=== PATIENT | female | born 1965 | race Caucasian/White ===

== ENCOUNTER 2022-06-18 07:56 | Outpatient (REF) | payer OTHER, SELFPAY ==
[2022-06-18 11:23] LABS: Hematocrit 33.3 % (37.0-47.0); Mean Corpuscular Hemoglobin 30.2 pg (27.0-33.0); Mean Corpuscular Volume 91.5 fL (80.0-98.0); Mean Platelet Volume 11.1 fL (9.4-12.3); Platelet Count 289 X10*3/uL (160-400); Red Blood Count 3.64 X10*6/uL (4.20-5.50); Red Cell Distribution Width 12.4 % (11.0-16.0); White Blood Count 7.1 X10*3/uL (4.8-10.8)
[2022-06-18 12:20] LABS: Alanine Aminotransferase 12 U/L (0-31); Albumin Level 3.7 g/dL (3.5-5.0); Alkaline Phosphatase 62 U/L (39-117); Anion Gap 12 (12-20); Aspartate Amino Transferase 22 U/L (5-31); Bilirubin Total 0.4 mg/dL (0.0-1.0); Blood Urea Nitrogen 7 mg/dL (9-16); Carbon Dioxide 27 mmol/L (22-29); Chloride 103 mmol/L (96-108); Cholesterol 153 mg/dL; Estimated Glomerular Filt Rate > 60; Glucose Fasting 80 mg/dL (60-99); HDL Cholesterol 34 mg/dL; LDL Cholesterol Calculated 75 mg/dl; Potassium 4.3 mmol/L (3.3-5.1); Sodium 138 mmol/L (135-145); Total Protein 6.5 g/dL (6.5-8.0); Triglycerides 221 mg/dL
[2022-06-18 12:22] LABS: TSH reflex Free T4 3.85 uIU/mL (0.32-4.0)
== END 2022-06-18 07:57 | disposition home or self-care (01) ==
LOC: HO.WFDLDS 07:56
PROVIDERS: Visit Provider Hospitalist
DX: Z00.00 Encounter for general adult medical examination without abnormal findings (principal)
CPT/HCPCS: 36415; 80053; 80061; 84443; 85027

== ENCOUNTER 2022-06-23 08:23 | Outpatient (REF) | payer OTHER, SELFPAY ==
[2022-06-23 12:04] LABS: Iron 64 mcg/dL (30-160); Percent Iron Saturation 20 % (15-50); Total Iron Binding Capacity 318 mcg/dL (228-428); Unsaturated Iron Binding 254 ug/dL
[2022-06-23 12:25] LABS: Folate 10.8 ng/mL (> or = 4.0); Vitamin B12 320 pg/mL (200-900)
== END 2022-06-23 08:24 | disposition home or self-care (01) ==
LOC: HO.WFDLDS 08:23
PROVIDERS: Visit Provider Hospitalist
DX: D64.9 Anemia, unspecified (principal)
CPT/HCPCS: 36415; 82607; 82746; 83540

== ENCOUNTER 2022-08-09 10:19 | Outpatient (REF) | payer OTHER, SELFPAY ==
--- NOTE | ~2022-08-09 | MM_ITS ---
EXAMINATION: MM SCREENING DIGITAL BREAST TOMOSYNTHESIS, BILATERAL CLINICAL INFORMATION: Screening. Asymptomatic. The lifetime risk of breast cancer based on the Tyrer-Cuzick Model is 7%. COMPARISON: Outside mammography: 06/26/2017, 05/11/2015 ([facility]) TECHNIQUE: Digital breast tomosynthesis is performed in both the craniocaudal and mediolateral oblique views along with computer-aided detection (CAD). Synthesized 2D images are generated from the tomosynthesis. Additional right MLO view is provided. FINDINGS: There are scattered areas of fibroglandular density (ACR BI-RADS breast composition Category b). Breast tissue composition borders on predominantly fatty. Background stromal and fibroglandular densities are similar to outside studies and there is no developing density or architectural abnormality. There are no significant masses, abnormal calcifications, or other abnormalities. The axilla and skin contours are unremarkable. MM/MM tomosynthesis screening BI IMPRESSION: No mammographic evidence of malignancy. ASSESSMENT: BI-RADS 1: Negative RECOMMENDATION: Routine annual mammography screening. This patient's information was entered into a reminder system with a target due date for their next mammogram.
== END 2022-08-09 10:20 | disposition home or self-care (01) ==
LOC: HO.MAMMO 10:19
PROVIDERS: Visit Provider Hospitalist
DX: Z12.31 Encounter for screening mammogram for malignant neoplasm of breast (principal)
CPT/HCPCS: 77063; 77067

== ENCOUNTER 2023-04-24 10:54 | Day surgery (SDC) | payer OTHER, SELFPAY ==
--- NOTE | 2023-04-23 13:13 | HO.ANESPROP2 ---
Documented by User: Yanni Schroeder NP 04/23/23 13:14 HPI - Anesthesia Eval Consult details Narrative: 57yo F for Colonoscopy [facility] Active Problems Active Problems: All Active Problems (Updated 04/23/23 @ 11:22 by Anuja Moise RN) Anemia (Acute) Colon cancer screening (Acute) Screening for breast cancer (Acute) Normal physical exam (Acute) Past Medical History Medical History (Updated 04/23/23 @ 11:22 by Anuja Moise RN) Anemia Social History Social History Housing: House Patient Tobacco Use Status: Never used Tobacco e-Cigarette/Vaping Use: Never Used Are you DNR?: No Advance Directives: No Advance Directives Information Provided: Yes Nutrition Risks: No Nutritional Risk Current occupational status: employed Meds Allergies Allergy/AdvReac Type Severity Reaction Status Date / Time No Known Allergies Allergy Verified 06/17/22 11:14 Assessment and Plan Assessment Anesthesia Assessment: Chart Reviewed Documented by User: Digna Stewart MD 04/24/23 12:12 [facility] Past Medical History Medical History (Updated 04/23/23 @ 11:22 by Anuja Moise RN) Anemia Family History Family history of problems with anesthesia: No Surgical History History of Problems with Anesthesia: No Social History Social History Housing: House Patient Tobacco Use Status: Never used Tobacco e-Cigarette/Vaping Use: Never Used Are you DNR?: No Advance Directives: No Advance Directives Information Provided: Yes Nutrition Risks: No Nutritional Risk Current occupational status: employed Meds Allergies Allergy/AdvReac Type Severity Reaction Status Date / Time No Known Allergies Allergy Verified 06/17/22 11:14 Exam Airway Mallampati Class: II TM Dist: >3cm Neck ROM: Full Heart: rrr Lungs: cts Assessment and Plan Assessment Anesthesia Assessment: Anesthesia Plan Discussed Final Anesthetic Review Family History of Problems with Anesthesia: No History of Problems with Anesthesia: No NPO: Yes ASA Class: II Final Preanesthetic Review: No Changes in Pt Med Stat, Meds/Allgs Chart Reviewed and Consent Obtained/Reviewed Patient Risk: Intermediate Procedure Risk: Intermediate Anesthetic Plan Anesthetic Plan: MAC: Disposition: Standard PACU
[2023-04-24 11:51] VITALS: BMI 23.6
[2023-04-24 11:56] VITALS: BP 118/78; PULSE 52; RESP 20; TEMP 36.1; O2SAT 98
--- NOTE | 2023-04-24 11:59 | MHC.SHP ---
Pre-Procedural Eval Section A Date of Service: 04/24/23 The patient is an INPATIENT: No The History & Physical has been completed within 30 days and I have reviewed it.: No Section B Chief Complaint: Colon cancer screening, iron def anemia Relevant Family History (Specify if Yes): No Relevant Social History: None Present Medications: see Short Stay Collaborative assessment Medical History: Significant History (anemia) History of Previous Operations: No relevant previous surgery Allergies: Allergies Allergy/AdvReac Type Severity Reaction Status Date / Time No Known Allergies Allergy Verified 06/17/22 11:14 Review of Systems Sugical H&P ROS: Negative: Constitution, Cardiovascular, Respiratory and Gastrointestinal Exam Surgical H&P Exam: Normal: Heart, Normal: Lungs, Normal: Extremities and Normal: Abdomen Plan Diagnosis/Plan: Change (add upper endoscopy for evaluation of Iron def anemia) I have reviewed the history and physical and performed a pertinent physical examination on my patient. No changes have occurred unless specified. Time Spent With Patient Time: Total time managing care of this patient today ____ minutes.
--- NOTE | 2023-04-24 13:14 | P.OP_ITS ---
Operative Note Operative Note Date of Service: 04/24/23 Narrative: FLEXIBLE TRANSORAL UPPER GASTROINTESTINAL ENDOSCOPY WITH BIOPSIES AND COLONOSCOPY TILL CECUM WITH SNARE POLYPECTOMY Pre-op diagnosis: colon cancer screening, iron def anemia Post-op diagnosis: Gastritis, duodenal ulcer, colon polyp, diverticulosis, hemorrhoids Endoscopist:? Saji Powell MD Anesthesia:?MAC UPPER ENDOSCOPY Consent: Indications for the procedure and potential complications of bleeding, perforation, reaction to medications and missed diagnosis were discussed with the patient and informed consent was obtained. Instrument: Olympus GIF H 190 mid size upper endoscope Monitoring: Vital signs and clinical assessment, continuous EKG monitoring, Pulse oximetry, Carbon Dioxide monitoring and blood pressure monitoring were done throughout the procedure. Procedure: The patient was placed in the left lateral decubitis position and pre-procedure medications were administered and a bite block was placed. The endoscope was inserted into the mouth and advanced under direct vision to the third part of duodenum. A careful inspection was made as the upper endoscope was withdrawn including a retroflexed examination of the proximal stomach; Findings and interventions are described below. Findings: Larynx: Normal Esophagus: GE junction at 38 cms. No esophagitis or Graf's. Stomach: Moderate gastric erythema with nodular appearing mucosa in the gastric body. Biopsies were obtained from the antrum and body of the stomach. Grade 1 flap valve on retroflexed examination of the cardia. Duodenum: Normal bulb and descending duodenum Intervention: Biopsies as noted above COLONOSCOPY PROCEDURE NOTE Consent: Indications for the procedure and potential complications of bleeding, perforation, reaction to medications and missed diagnosis were discussed with the patient and informed consent was obtained. Instrument: Olympus PCF H 190 L variable stiffness pediatric colonoscope Monitoring: Vital signs and clinical assessment, intermittent blood pressure monitoring, continuous EKG monitoring, Pulse oximetry and Carbon Dioxide monitoring were done throughout the procedure. Colon withdrawl time was 22 minutes. Procedure: The patient was placed in the left lateral decubitis position and pre-procedure medications were administered. After a digital rectal examination of the ano-rectum, the video colonoscope was inserted into the rectum and advanced through the colon to the cecum. The colonoscope was slowly withdrawn in a retrograde panoramic fashion and the colon mucosa was carefully examined including a retroflexed view of the rectum. Findings and interventions are described below. Procedure Difficulty: Colon was long and tortuous and there was some loop formation Findings: Terminal Ileum: Distal 5 cm was examined and appeared normal Cecum: Normal Ascending Colon: Normal Transverse Colon: Normal Descending Colon: Normal Sigmoid Colon: A 10-12 mm sessile polyp - removed with a hot snare. Moderate diverticulosis Rectum: Normal Ano-rectum: Small internal hemorrhoids Colon preparation: Excellent Impression and Post Procedure Diagnosis: Endoscopy Findings: STOMACH: Moderate gastric erythema with nodular appearing mucosa in the gastric body. Biopsies were obtained from the antrum and body of the stomach. Colonoscopy Findings: One medium sized polyp removed Moderate diverticulosis seen in the sigmoid colon Small hemorrhoids on retroflexed exam. Plan: I will send a letter with pathology results Patient to schedule a follow up appointment in the GI Clinic with Saji Powell M.D. Repeat Colonoscopy interval based on path results - in 3 years if polyp is adenomatous and 10 years if polyps are hyperplastic. Above findings were reviewed with the patient and Peptic ulcer disease, colon polyps and diverticulosis handouts were given in the discharge area Pt was advised to start Omeprazole 20 mg daily. BIOPSIES SHOWED: A. Duodenum, biopsy: Small intestinal mucosa within normal limits; negative for celiac disease. B. Stomach, antrum, biopsy: - Antral-type mucosa with severe chronic active inflammation. - Positive for H pylori. C. Stomach, body, biopsy: - Oxyntic mucosa with moderate chronic, focally active, inflammation. - Positive for H pylori. D. Colon, sigmoid, polypectomy: Fragments of tubular adenoma; negative for high- grade dysplasia or carcinoma
[2023-04-24 13:51] VITALS: BP 101/50; PULSE 59; RESP 16; TEMP 36.1; O2SAT 97
[2023-04-24 14:06] VITALS: BP 113/71; PULSE 57; RESP 14; O2SAT 98
[2023-04-24 14:21] VITALS: BP 114/62; PULSE 60; RESP 16; TEMP 36.2; O2SAT 100
== END 2023-04-24 14:41 | disposition home or self-care (01) ==
PROVIDERS: Visit Provider Internal Medicine Gastroenterology
PROC: 0DJD8ZZ Inspection of Lower Intestinal Tract, Via Natural or Artificial Opening Endoscopic (ICD-10-PCS; CPT 45378; principal; 2023-04-24 12:50)
DX: Z12.11 Encounter for screening for malignant neoplasm of colon (principal); D12.5 Benign neoplasm of sigmoid colon; K57.30 Diverticulosis of large intestine without perforation or abscess without bleeding; K64.8 Other hemorrhoids; D50.9 Iron deficiency anemia, unspecified; K26.9 Duodenal ulcer, unspecified as acute or chronic, without hemorrhage or perforation; K29.50 Unspecified chronic gastritis without bleeding; B96.81 Helicobacter pylori [H. pylori] as the cause of diseases classified elsewhere
CPT/HCPCS: 45385; 43239; 88305; 88342; J2704

== ENCOUNTER → 2023-04-24 10:54 | Outpatient (BNV) | payer OTHER, SELFPAY | PROVIDERS: Visit Provider Internal Medicine Gastroenterology | DX: Z12.11 Encounter for screening for malignant neoplasm of colon (principal); K63.5 Polyp of colon; K57.30 Diverticulosis of large intestine without perforation or abscess without bleeding; K64.8 Other hemorrhoids; D50.9 Iron deficiency anemia, unspecified; K29.70 Gastritis, unspecified, without bleeding; K26.9 Duodenal ulcer, unspecified as acute or chronic, without hemorrhage or perforation | CPT/HCPCS: 43239; 45385 ==

== ENCOUNTER 2023-06-18 08:35 | Outpatient (REF) | payer OTHER, SELFPAY ==
[2023-06-21 13:20] LABS: H Pylori Breath Test Negative (Negative)
== END 2023-06-18 08:36 | disposition home or self-care (01) ==
LOC: HO.LNP 08:35
PROVIDERS: Visit Provider Internal Medicine Gastroenterology
DX: Z11.2 Encounter for screening for other bacterial diseases (principal)
CPT/HCPCS: 83013; 99211

== ENCOUNTER 2023-06-26 08:08 | Outpatient (AMB) | payer OTHER, SELFPAY ==
--- NOTE | 2023-06-26 08:11 | A.OFFPC_ITS ---
Vital Signs 06/26/23 08:13 Height 5 ft 2 in Weight 135 lb 2 oz BMI 24.7 BP 110/52 L Blood Pressure Location Rt brachial Position Sitting Pulse 66 Pulse Source Pulse Oximeter Oxygen Delivery Method Room Air Intake Visit Reasons: PE Allergies No Known Allergies Allergy (Verified 06/26/23 08:16) Medication List - Last Reconciled 06/26/23 by KSENIA Cesar Tobacco use date assessed: 06/17/22 HPI HPI Comments History of Present Illness Details 57-year-old female anemia H. 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 Referral placed today Vaccines declined flu, Tdap 2021 Eyes - no problems. Would like exam, referral placed today Specialists [facility] SHEAR OPERATOR HELPER Counselor Here today for CPE & est care Did have GI upset abd pain occured during time of of parents. Treated for H Pylori. MIKE 06/18/23 negative. No longer on meds Was taking Iron for anemia, no longer taking. Donates blood Reports perimenopause sx - heavy bleeding age 51. Can have 6-8 months w/o bleeding and then can have normal period. LMP 03/2023. Not active w/ SHEAR OPERATOR HELPER at this time. Overdue for PAP and SHEAR OPERATOR HELPER care. Fell out of care d/t insurance changes. Reports hx of endometrial bx in the past that was negative. Hysteroscopy was ordered however she didnt have insurance at the time. In counseling for Grief Surgery hx: None Family hx: Mom 84 chikungunya pulm Dad 88 bladder cancer Siblings 4 brothers, 3 sisters. sister 10 months old PNA, brothers [place] age 32 and 35 Living siblings: sister chrons & hyperthyroid, brother w/ gout and etoh, brother with heart disorder ? arrhythmia PFSH Medical History Anemia Social History Housing: House Patient Tobacco Use Status: Never used Tobacco e-Cigarette/Vaping Use: Never Used Current occupational status: employed Questionnaire PHQ-9 Over the last 2 weeks, how often have you been bothered by any of the following problems? 1. Little interest or pleasure in doing things: not at all 2. Feeling down, depressed, or hopeless: not at all 3. Trouble falling or staying asleep, or sleeping too much: not at all 4. Feeling tired or having little energy: not at all 5. Poor appetite or overeating: not at all 6. Feeling bad about yourself - or that you are a failure or have let yourself or your family down: not at all 7. Trouble concentrating on things, such as reading the newspaper or watching television: not at all 8. Moving or speaking so slowly that other people could have noticed. Or the opposite - being so fidgety or restless that you have been moving around a lot more than usual: not at all 9. Thoughts that you would be better off or of hurting yourself in some way: not at all Total score: 0 Depression Screening Interpretation: Negative Depression Screening Done: Yes 43079 - PHQ-9 Billing: Yes Source: Developed by Drs. Farhan Moya, Lanny Whitney, Isael Edmond and colleagues, with an educational octavio from [employer]. Thrive Questionnaire Date Thrive assessed: 06/17/22 I am a: Parent/Caregiver What is your living situation today?: I have a steady place to live Within the past 12 months, did the food you bought not last and you didn't have the money to get more?: Never true Within the past 12 months, did you worry whether your food would run out before you got money to buy more?: Never true Do you have trouble paying for medicines?: No Do you have trouble getting transportation to medical appointments?: No Do you have trouble paying your heating and electricity bill?: No Do you have trouble taking care of your child, family member or friend?: No Do you have trouble with day-to-day activities such as bathing, preparing meals, shopping, managing finances, etc.?: No Are you currently unemployed and looking for a job?: No Are you interested in more education?: No Please select the resources that you would like help with: None Currently or been in a relationship where the following occur: no concerns reported THRIVE Score: 0 AUDIT C Alcohol Use Questionnaire (AUDIT-C) 1. How often do you have a drink containing alcohol?: Never 3. How often do you have six or more drinks on one occasion?: Never Total Score: 0 Score Reviewed/Action Taken: Yes MELINDA-7 AMB Questionnaire MELINDA-7 Date MELINDA - 7 assessed: 06/17/22 Feeling nervous, anxious, or on edge: 0 = Not at all Not being able to stop or control worryin = Not at all Worrying too much about different things: 0 = Not at all Trouble relaxin = Not at all Being so restless that it is hard to sit still: 0 = Not at all Becoming easily annoyed or irritable: 0 = Not at all Feeling afraid as if something awful might happen: 0 = Not at all Total MELINDA-7 score (0-4 normal; 5-9 mild; 10-14 moderate; 15-21 severe): 0 Source: Developed by Drs. Farhan Moya, Lanny Whitney, Isael Edmond and colleagues, with an educational octavio from [employer]. MELINDA-7 Assessment Billing MELINDA-7 Assessment Tool: MELINDA-7 Assessment 18117 Review of Systems Const Details: Constitutional: [Denies] fever. Skin: [Denies] rash. Eye: [Denies] eye pain. ENMT: [Denies] sore throat and nasal congestion. Respiratory: [Denies] shortness of breath and cough. Gastrointestinal: [Denies] nausea, vomiting or abdominal pain. Cardiovascular: [Denies] chest pain and syncope. Genitourinary: [Denies] dysuria. Musculoskeletal: [Denies] back pain and extremity pain. Neurologic: [Denies] headaches, confusion, and weakness. Psychiatric: [Denies] suicidal thoughts and substance abuse. Allergy/ Immunologic: [Denies] impaired immunity. Physical exam (Primary Care) Vital Signs: Last Vital Signs Pulse 66 06/26/23 08:13 BP 110/52 L 06/26/23 08:13 Oxygen Delivery Method Room Air 06/26/23 08:13 BMI result Body Mass Index 24.7 Tobacco/Smoking Status: Tobacco use Status Tobacco use date assessed 06/17/22 06/26/23 08:27 Patient Tobacco Use Status Never used Tobacco 06/26/23 08:27 e-Cigarette/Vaping Use Never Used 06/26/23 08:27 PHQ-9: PHQ-9 Score PHQ-9: Total score 0 06/26/23 08:27 Depression Screening Interpretation: Negative Thrive Assessment: Date of Thrive Assessment Date Thrive assessed 06/17/22 06/26/23 08:27 Currently or been in a relationship where the following occur: no concerns reported Const Other: General: Well developed, well nourished, in no acute distress. Appears stated age. Head: Normocephalic, atraumatic. Eyes: Pupils are equal, round and reactive to light and accommodation. Conjunctivae are clear. Vision grossly normal. Ears: TMs clear AU, EACS WNL Nose: Patent, without discharge. Mouth: There are no ulcers or lesions noted. No inflammation, no post nasal drip, no plaques nor exudates. Neck: Supple, no adenopathy or thyromegaly. Lungs: Clear to auscultation bilaterally. No rales, rhonchi or wheeze noted. Good air flow in all kemp. Heart: Regular rate and rhythm. No murmurs, click, rubs or gallops are noted. Abdomen: Bowel sounds present in all quadrants. The abdomen is soft, nontender, with no masses or organomegaly noted. No hernias are noted. Musculoskeletal: Joints are nontender, without swelling, redness, or effusions. Range of motion is observed to be normal. Pulses: Peripheral pulses are equal and palpable bilaterally. Extremities: No clubbing, cyanosis nor edema is noted. Neurologic: Gait and station normal. Cranial Nerves 2-12 intact. Motor strength grossly symmetrical and intact. No sensory loss. Balance normal. Skin: No rashes, ulcers, or lesions noted. Turgor is good. Skin color is good. Hair and nails are without abnormalities. Psych: Normal eye contact, affect and mood appropriate, and normal interactions. Patient is alert and appropriate to context. Assessment and Plan Assessment & Plan (1) Normal physical exam: Code(s): Z00.00 - Encounter for general adult medical examination without abnormal findings (2) Cervical cancer screening: Comment: Refer to managing manager Code(s): Z12.4 - Encounter for screening for malignant neoplasm of cervix (3) Hair loss: Code(s): L65.9 - Nonscarring hair loss, unspecified Plan: refer to dermatology (4) Screening for eye condition: Comment: refer to ophthalmology Code(s): Z13.5 - Encounter for screening for eye and ear disorders (5) Anemia: Comment: was on iron in the past. No longer taking. Reports she donates blood routinely. Also reports heavy menses. Referred to managing manager for the menses. We will check labs. Code(s): D64.9 - Anemia, unspecified Qualifiers: Anemia type: iron deficiency Iron deficiency anemia type: chronic blood loss Qualified Code(s): D50.0 - Iron deficiency anemia secondary to blood loss (chronic) (6) Subclinical hypothyroidism: Comment: Reports this was noted in 2018. Repeat thyroid labs Code(s): E03.8 - Other specified hypothyroidism (7) Laboratory exam ordered as part of routine general medical examination: Code(s): Z00.00 - Encounter for general adult medical examination without abnormal findings Orders: Orders TSH reflex Free T4 Today D64.9 - Anemia, unspecified, E03.8 - Other specified hypothyroidism, Z00.00 - Encounter for general adult medical examination without abnormal findings Comprehensive [place]. Panel Fast Today D64.9 - Anemia, unspecified, E03.8 - Other specified hypothyroidism, Z00.00 - Encounter for general adult medical examination without abnormal findings Vitamin D 1,25 dihydroxy Today D64.9 - Anemia, unspecified, E03.8 - Other specified hypothyroidism, Z00.00 - Encounter for general adult medical examination without abnormal findings Lipid Panel Today D64.9 - Anemia, unspecified, E03.8 - Other specified hypothyroidism, Z00.00 - Encounter for general adult medical examination without abnormal findings Complete Blood Count no Diff Today D64.9 - Anemia, unspecified, E03.8 - Other specified hypothyroidism, Z00.00 - Encounter for general adult medical examination without abnormal findings IRON PROFILE Today D64.9 - Anemia, unspecified, E03.8 - Other specified hypothyroidism, Z00.00 - Encounter for general adult medical examination without abnormal findings Microalbumin, Random (w Creat) Today Z00.00 - Encounter for general adult medical examination without abnormal findings Referrals [facility] TIER Referral Z00.00 - Encounter for general adult medical examination without abnormal findings, Z12.4 - Encounter for screening for malignant neoplasm of cervix Dermatology Referral L65.9 - Nonscarring hair loss, unspecified Ophthalmology Referral Z13.5 - Encounter for screening for eye and ear disorders Cardiology Referral Z82.49 - Family history of ischemic heart disease and other diseases of the circulatory system Patient Instructions: Health screenings for women ages 18 to 39 You should visit your health care provider from time to time, even if you are healthy. The purpose of these visits is to: Screen for medical issues Assess your risk for future medical problems Encourage a healthy lifestyle Update vaccinations and other preventive care services Help you get to know your provider in case of an illness Information Even if you feel fine, you should still see your provider for regular checkups. These visits can help you avoid problems in the future. For example, the only way to find out if you have high blood pressure is to have it checked regularly. High blood sugar and high cholesterol levels also may not have any symptoms in the early stages. A simple blood test can check for these conditions. There are specific times when you should see your provider or receive specific health screenings. The [place] Preventive Services Task Force publishes a list of recommended screenings. Below are screening guidelines for women ages 18 to 39. BLOOD PRESSURE SCREENING Your blood pressure should be checked at least once every 3 to 5 years if: Your blood pressure is in the normal range (top number less than 120 mm Hg and bottom number less than 80 mm Hg) You don't have risk factors for high blood pressure Ask your provider if you need your blood pressure checked more often if: The top number is 120 to 129 mm Hg or the bottom number is 70 to 79 mm Hg You have diabetes, heart disease, kidney problems, are overweight, or have certain other health conditions You have a first-degree relative with high blood pressure You are Black You had high blood pressure during a If the top number is 130 mm Hg or greater or the bottom number is 80 mm Hg or greater, this is considered stage 1 hypertension. Schedule an appointment with your provider to learn how you can reduce your blood pressure. Watch for blood pressure screenings in your area. Ask your provider if you can stop in to have your blood pressure checked. BREAST CANCER SCREENING Experts do not agree about the benefits of breast self-exams in finding breast cancer or saving lives. Talk to your provider about what is best for you. A screening mammogram is not recommended for most women under age 40. Your provider may discuss and recommend mammograms, MRI scans, or ultrasounds if you have an increased risk for breast cancer, such as: A mother or sister who had breast cancer at a young age (most often starting screening earlier than the age the close relative was diagnosed) You carry a high-risk genetic marker CERVICAL CANCER SCREENING Cervical cancer screening should start at age 21 years unless your provider advises otherwise. After the first test: Women ages 21 through 29 should have a Pap test every 3 years. Exoprts do not agree on whether HPV testing is recommended for this age group. Women ages 30 through 65 should be screened with either a Pap test every 3 years or the HPV test every 5 years or both tests every 5 years (called cotesting ). Women who have been treated for precancer (cervical dysplasia) should continue to have Pap tests for 20 years after treatment or until age 65, whichever is longer. If you have had your uterus and cervix removed (total hysterectomy), and you have not been diagnosed with cervical cancer or precancer (high grade cervical neoplasia), you do not need cervical cancer screening. CHOLESTEROL SCREENING Cholesterol screening should begin at: Age 45 for women with no known risk factors for coronary heart disease Age 20 for women with known risk factors for coronary heart disease Repeat cholesterol screening should take place: Every 5 years for women with normal cholesterol levels More often if changes occur in lifestyle (including weight gain and diet) More often if you have diabetes, heart disease, kidney problems, or certain other conditions DIABETES SCREENING You should be screened for diabetes starting at age 35 and then repeated every 3 years if you have no risk factors for diabetes. Screening may need to start earlier and be repeated more often if you have other risk factors for diabetes, such as: You have a first degree relative with diabetes. You are overweight or have obesity. You have high blood pressure, prediabetes, or a history of heart disease. Screening for diabetes should be done if you are planning to become and you are overweight and have other risk factors such as high blood pressure. DENTAL EXAM Go to the dentist once or twice every year for an exam and cleaning. Your dentist will evaluate if you need more frequent visits. EYE EXAM Have an eye exam every 5 to 10 years before age 40. If you have vision problems, have an eye exam every 2 years or more often if recommended by your provider. You should have an eye exam that includes an examination of your retina (back of your eye) at least every year if you have diabetes. IMMUNIZATIONS Commonly needed vaccines include: Flu shot: get one every year. COVID-19 vaccine: ask your provider what is best for you. Tetanus-diphtheria and acellular pertussis (Tdap) vaccine: have one at or after age 19 as one of your tetanus-diphtheria vaccines if you did not receive it as an adolescent. Tetanus-diphtheria: have a booster (or Tdap) every 10 years. Varicella vaccine: receive 2 doses if you never had chickenpox or the varicella vaccine. Hepatitis B vaccine: receive 2, 3, or 4 doses, depending on your exact circumstances. Measles, mumps, and rubella (MMR) vaccine: receive 1 to 2 doses if you are not already immune to MMR. Your provider can tell you if you are immune. Ask your provider about the human papillomavirus (HPV) vaccine if: You have not received the HPV vaccine in the past You have not completed the full vaccine series (you should catch up on this shot) Ask your provider if you should receive other immunizations if you have certain health problems that increase your risk for some diseases such as pneumonia. INFECTIOUS DISEASE SCREENING Women who are sexually active should be screened for chlamydia and gonorrhea up until age 25. Women 25 years and older should be screened for chlamydia and gonorrhea if at high risk. Screening for hepatitis C: All adults ages 18 to 79 should get a one-time test for hepatitis C. people should be screened at every . Screening for human immunodeficiency virus (HIV): All people ages 15 to 65 should get a one-time test for HIV. Depending on your lifestyle and medical history, you may also need to be screened for infections such as syphilis and HIV, as well as other infections. PHYSICAL EXAM All adults should visit their provider from time to time, even if they are healthy. The purpose of these visits is to: Screen for disease Assess your risk of future medical problems Encourage a healthy lifestyle Update your vaccinations and other preventive care services Maintain a relationship with a provider in case of an illness Your height, weight, and BMI should be checked at every exam. During your exam, your provider may ask you about: Depression and anxiety Diet and exercise Alcohol and tobacco use Safety issues, such as using seat belts, smoke detectors, and intimate partner violence Your medicines and risk for interactions SKIN SELF-EXAM Your provider may check your skin for signs of skin cancer, especially if you're at high risk, such as if you: Have had skin cancer before Have close relatives with skin cancer Have a weakened immune system OTHER SCREENING Talk with your provider about colon cancer screening if you have a strong family history of colon cancer or polyps, or if you have had inflammatory bowel disease or polyps yourself. Routine bone density screening of women under 40 is not recommended. Review Flu Vaccine not done: patient reason Coding Level of Care Code Est Pt Prev Care 40-64y(00361) Diagnoses Normal physical exam Z00.00 Cervical cancer screening Z12.4 Hair loss L65.9 Screening for eye condition Z13.5 Iron deficiency anemia due to chronic blood loss D50.0 Anemia type: iron deficiency Iron deficiency anemia type: chronic blood loss Subclinical hypothyroidism E03.8 Laboratory exam ordered as part of routine general medical examination Z00.00 Additional Codes MELINDA-7 Assessment Billing - MELINDA-7 Assessment Tool: MELINDA-7 Assessment [id number] ([id number])
[2023-06-26 08:13] VITALS: BP 110/52; PULSE 66; BMI 24.7
== END 2023-06-26 09:10 | disposition home or self-care (01) ==
PROVIDERS: Visit Provider Nurse Practitioner Family
DX: Z00.00 Encounter for general adult medical examination without abnormal findings (principal); Z12.4 Encounter for screening for malignant neoplasm of cervix; L65.9 Nonscarring hair loss, unspecified; Z13.5 Encounter for screening for eye and ear disorders; D50.0 Iron deficiency anemia secondary to blood loss (chronic); E03.8 Other specified hypothyroidism
CPT/HCPCS: 99396

== ENCOUNTER 2023-06-26 08:54 | Outpatient (REF) | payer OTHER, SELFPAY ==
[2023-06-26 11:25] LABS: Hematocrit 39.3 % (37.0-47.0); Hemoglobin 13.2 g/dl (12.0-16.0); Mean Corpuscular HGB Conc 33.6 g/dl (31.0-35.0); Mean Corpuscular Hemoglobin 30.8 pg (27.0-33.0); Mean Corpuscular Volume 91.8 fL (80.0-98.0); Mean Platelet Volume 10.9 fL (9.4-12.3); Platelet Count 237 X10*3/uL (160-400); Red Blood Count 4.28 X10*6/uL (4.20-5.50); White Blood Count 7.9 X10*3/uL (4.8-10.8)
[2023-06-26 12:07] LABS: Creatinine Urine 11.27 mg/dL; Microalbumin Urine < 5.0 mg/L
[2023-06-26 13:08] LABS: Alanine Aminotransferase 18 U/L (0-31); Albumin Level 4.3 g/dL (3.5-5.0); Alkaline Phosphatase 80 U/L (39-117); Anion Gap 11 (12-20); Aspartate Amino Transferase 24 U/L (5-31); Bilirubin Total 0.6 mg/dL (0.0-1.0); Blood Urea Nitrogen 7 mg/dL (9-16); Calcium 9.1 mg/dL (8.4-10.2); Carbon Dioxide 30 mmol/L (22-29); Chloride 101 mmol/L (96-108); Cholesterol 193 mg/dL (<200); Estimated Glomerular Filt Rate > 60; Glucose Fasting 79 mg/dL (60-99); HDL Cholesterol 45 mg/dL (>40); Iron 102 mcg/dL (30-160); LDL Cholesterol Calculated 113 mg/dL (<100); Percent Iron Saturation 35 % (15-50); Potassium 3.7 mmol/L (3.3-5.1); Sodium 138 mmol/L (135-145); Total Iron Binding Capacity 290 mcg/dL (228-428); Total Protein 7.3 g/dL (6.5-8.0); Triglycerides 175 mg/dL (<150); Unsaturated Iron Binding 188 ug/dL
[2023-06-26 14:07] LABS: Free T4 (Free Thyroxine) 1.08 ng/dL (0.71-1.85)
[2023-07-01 15:57] LABS: VITAMIN D (1,25 OH) D3 39 pg/mL; Vit D (1,25-Dihydroxy) Total 39 pg/mL (18-72); Vitamin D (1,25 OH) D2 <8 pg/mL
== END 2023-06-26 08:55 | disposition home or self-care (01) ==
LOC: HO.WFDLDS 08:54
PROVIDERS: Visit Provider Nurse Practitioner Family
DX: Z00.00 Encounter for general adult medical examination without abnormal findings (principal); D64.9 Anemia, unspecified; E03.8 Other specified hypothyroidism
CPT/HCPCS: 36415; 80053; 80061; 82043; 82570; 82652; 83540; 84439; 84443; 85027

== ENCOUNTER 2023-08-14 08:31 | Outpatient (REF) | payer OTHER, SELFPAY ==
[2023-08-19 23:18] LABS: HPV mRNA E6/E7 rflx Not Detected (Not Detected)
== END 2023-08-14 08:32 | disposition home or self-care (01) ==
LOC: HO.LNP 08:31
PROVIDERS: Visit Provider Advanced Practice Midwife
DX: Z01.419 Encounter for gynecological examination (general) (routine) without abnormal findings (principal); Z11.51 Encounter for screening for human papillomavirus (HPV)
CPT/HCPCS: 87624; 88142

== ENCOUNTER 2023-08-14 08:31 | Outpatient (AMB) | payer OTHER, SELFPAY ==
--- NOTE | 2023-08-14 08:32 | A.OFFVIS_ITS ---
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 She is doing well with no concerns. Menses spacing over several years, last cycle March, and now this week. History of heavy menstrual bleeding and hyperplasia, had EMB in 2018, she reports a negative biopsy. 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 Currently not sexually active. Denies any vaginal dryness or irritation. STI testing offered; she declines. Last pap smear; 2017, negative history. Last mammogram; 2022. Colonoscopy is UTD. Needs one in 3 years. Denies any family history of breast, ovarian or colon cancer. 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 Sexually active: No Sexual orientation: Straight/Heterosexual Gender identity: Female Female Reproductive History Menstrual Total pregnancies: 3 Full term: 3 Number of Living Children: 3 Date of last pap smear: 06/30/17 Date of Mammogram: 08/09/22 Review of Systems Const All systems reviewed & are unremarkable except as noted in HPI and below Reports as per HPI Eyes Reports no additional complaints ENT Reports no additional complaints Card Reports no additional complaints Resp Reports no additional complaints GI Reports as per HPI and Reports no additional complaints Reports as per HPI Musc Reports no additional complaints Skin/Breast Reports as per HPI Neuro Reports no additional complaints Psych Reports no additional complaints Endo Reports no additional complaints Trey/Lymph Reports no additional complaints Aller/Immun Reports no additional complaints Physical Exam Vital Signs: Last Vital Signs BP 106/62 08/14/23 08:36 BMI result Body Mass Index 23.8 Const General: cooperative, healthy appearing, no acute distress, well developed and alert Orientation/consciousness: patient oriented x3 HEENT Head: Yes normal to inspection Eyes General: appearance normal, both eyes and all related structures Neck Neck: Yes normal visual inspection Thyroid: Thyroid normal Chest Chest palpation & inspection: normal inspection of the chest and other (no puckering, dimpling, peau de orange, retraction, discharge, masses) Breast/axilla inspection: normal inspection of the breasts Breast/axilla palpation: normal palpation of the breasts Resp Effort & Inspection: normal respiratory effort GI Inspection: Yes normal to inspection Palpation (GI): Soft to palpation Rectal Exam - Female: deferred General: Yes bladder normal to palpation External Female Exam: normal external appearance and normal appearance of the urethra Speculum Exam - Vagina: normal appearance of the vagina, normal palpation, normal vaginal discharge and vaginal bleeding Speculum Exam - Cervix: normal appearance of the cervix, normal palpation and Other cervical findings present (deviated to the right) Bimanual exam- vagina & uterus: normal bimanual exam, normal palpation, uterine size normal, bladder normal to palpation, normal palpation and non-tender Bimanual Exam- Adnexa, other: no masses OB/external & speculum: vaginal bleeding Skin General skin exam: no rashes or lesions noted Rashes: no rashes Neuro General: patient oriented x3 Cognition (Neuro): normal cognition Extrem General: Yes normal to inspection Psych Attitude: cooperative Thought process: Normal thought process present Assessment & Plan Assessment & Plan (1) Encounter for well woman exam with routine gynecological exam: Code(s): Z01.419 - Encounter for gynecological examination (general) (routine) without abnormal findings Plan Discussed: Current recommendations for pap smears per ASCCP guidelines. Breast awareness, periodic self breast exams and yearly mammogram. Maintain a healthy lifestyle, well balanced diet including Calcium 1,200 mg and Vitamin D 600 IU daily, and routine exercise. Use of condoms for STI if indicated. Contact the office with any AUB. Plan ultrasound follow-up to check the endometrial lining and consider EMB at her follow-up visit due to her history of hyperplasia, untreated. FSH is baseline lab. Return to the office for ultrasound findings and possible EMB same-day. Patient verbalizes understanding and agrees to the plan of care. She was given opportunity to ask questions and all questions were answered to the best of my ability. RTO in 1 year for annual workday manager exam. This note is constructed using voice recognition software. While every effort has been made to ensure accuracy, fire protection equipment technician errors may have been included. Orders: Orders Pap Smear Today Z01.419 - Encounter for gynecological examination (general) (routine) without abnormal findings MM tomosynthesis screening BI Today Z12.31 - Encounter for screening mammogram for malignant neoplasm of breast US pelvic and transvaginal Today Z87.42 - Personal history of other diseases of the female genital tract Follicle Stimulating Hormone Today R23.2 - [place] Coding Level of Care Code New Pt Prev Care 40-64y(70542) Diagnoses Encounter for well woman exam with routine gynecological exam Z01.419
[2023-08-14 08:36] VITALS: BP 106/62; BMI 23.8
== END 2023-08-14 10:59 | disposition home or self-care (01) ==
PROVIDERS: Visit Provider Advanced Practice Midwife
DX: Z01.419 Encounter for gynecological examination (general) (routine) without abnormal findings (principal)
CPT/HCPCS: 99386

== ENCOUNTER 2023-08-25 15:48 | Outpatient (REF) | payer OTHER, SELFPAY ==
--- NOTE | ~2023-08-25 | US_ITS ---
EXAMINATION: US PELVIS CLINICAL INFORMATION: Irregular menstrual bleeding; postmenopausal patient. COMPARISON: None available. TECHNIQUE: Ultrasound of the pelvis is performed using both transabdominal and transvaginal transducers along with Doppler. Transvaginal imaging is performed due to inadequate visualization transabdominally. FINDINGS: Uterus: The uterus is anteverted and anteflexed. The uterus measures 8.8 x 4.6 x 6.8 cm. The double wall endometrial thickness is 16 mm. The uterus is smooth in contour and has normal myometrial echogenicity. No visible fibroid. Adnexa: Both ovaries are visualized. There is normal color flow to the adnexa. There is no ovarian torsion. There is no pelvic ascites or fluid collection. Right ovary measures 2.2 x 1.2 x 1.1 cm, volume 1.5 mL. Left ovary measures 2.0 x 1.1 x 1.3 cm, volume 1.4 mL. US/US pelvic and transvaginal IMPRESSION: There is postmenopausal endometrial stripe thickening to 1.6 cm. Gynecology evaluation and management is recommended, with consideration for tissue sampling, if clinically indicated.
[2023-08-26 08:44] LABS: Follicle Stimulating Hormone 40.8 mIU/mL
== END 2023-08-25 15:49 | disposition home or self-care (01) ==
LOC: HO.US 15:48
PROVIDERS: Absent Provider Advanced Practice Midwife; PCP Nurse Practitioner Family; Visit Provider Advanced Practice Midwife
DX: R23.2 Flushing (principal); Z87.42 Personal history of other diseases of the female genital tract
CPT/HCPCS: 36415; 76830; 76856; 83001

== ENCOUNTER 2023-08-27 15:55 | Outpatient (REF) | payer OTHER, SELFPAY ==
--- NOTE | ~2023-08-27 | MM_ITS ---
EXAMINATION: MM SCREENING DIGITAL BREAST TOMOSYNTHESIS, BILATERAL CLINICAL INFORMATION: Screening. Asymptomatic. COMPARISON: Mammography: This study is compared with prior exams dating back to 2016. TECHNIQUE: Digital breast tomosynthesis is performed in both the craniocaudal and mediolateral oblique views along with computer-aided detection (CAD). Synthesized 2D images are generated from the tomosynthesis. FINDINGS: The breasts are almost entirely fatty (ACR BI-RADS breast composition Category a). There are no significant masses, abnormal calcifications, or other abnormalities. MM/MM tomosynthesis screening BI IMPRESSION: No mammographic evidence of malignancy. ASSESSMENT: BI-RADS BI-RADS 1 - Negative RECOMMENDATION: Routine annual mammography screening. 1 year F/U This examination should not preclude the clinical evaluation of a suspicious palpable abnormality. This patient's information was entered into a reminder system with a target due date for their next mammogram.
== END 2023-08-27 15:56 | disposition home or self-care (01) ==
LOC: HO.MAMMO 15:55
PROVIDERS: PCP Nurse Practitioner Family; Visit Provider Advanced Practice Midwife
DX: Z12.31 Encounter for screening mammogram for malignant neoplasm of breast (principal)
CPT/HCPCS: 77063; 77067

== ENCOUNTER → 2023-08-27 16:00 | Outpatient (BNV) | payer OTHER, SELFPAY | PROVIDERS: PCP Nurse Practitioner Family; Visit Provider Radiology Diagnostic Radiology | DX: Z12.31 Encounter for screening mammogram for malignant neoplasm of breast (principal) | CPT/HCPCS: 77063; 77067 ==

== ENCOUNTER 2023-09-30 15:41 | Outpatient (AMB) | payer OTHER, SELFPAY ==
[2023-09-30 15:45] VITALS: BP 108/64; BMI 23.8
--- NOTE | 2023-09-30 15:45 | MHC.OFFVIS ---
Vital Signs 09/30/23 15:45 Height 5 ft 2 in Weight 130 lb BMI 23.8 BP 108/64 Intake Visit Reasons: Ultra sound follow up Radiology Clerk Required: No Attending Anesthesiologist: Attending Anesthesiologist Present Allergies No Known Allergies Allergy (Verified 09/30/23 15:50) Is last menstrual period known: Yes HPI Comments Details: Patient is here today for a follow up on her pelvic ultrasound results. Menses spacing over several years, bled in March and in July. History of heavy menstrual bleeding and hyperplasia, had EMB in 2018, she reports a negative biopsy. She reports spotting with exercising since last month. FSH in July was 40.8, TSH was 6.80-she has not seen her primary care yet for this. 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 Sexual orientation: Straight/Heterosexual Gender identity: Female Female Reproductive History Menstrual control method: none Date of last pap smear: 08/18/23 (negative) Review of Systems Const All systems reviewed & are unremarkable except as noted in HPI and below Endo Reports no additional complaints Physical Exam Vital Signs: Last Vital Signs BP 108/64 09/30/23 15:45 BMI result Body Mass Index 23.8 Const General: cooperative, healthy appearing and no acute distress Psych Appearance: well kempt Attitude: cooperative Thought process: Normal thought process present Results Reviewed Results Reviewed: [address] [address] Ultrasound Report Signed Patient: Esdras Almonte MR#: [id number] : 1965 Acct:[id number] Age/Sex: 57 / F ADM Date: 08/25/23 Loc: HO. Attending Dr: Syeda Clarke CNM Ordering Physician: Syeda Clarke CNM Date of Service: 08/25/23 Procedure(s): US pelvic and transvaginal Accession Number(s): [id number] cc: Syeda Clarke CNM; Nicole Euceda [facility]~ EXAMINATION: US PELVIS CLINICAL INFORMATION: Irregular menstrual bleeding; postmenopausal patient. COMPARISON: None available. TECHNIQUE: Ultrasound of the pelvis is performed using both transabdominal and transvaginal transducers along with Doppler. Transvaginal imaging is performed due to inadequate visualization transabdominally. FINDINGS: Uterus: The uterus is anteverted and anteflexed. The uterus measures 8.8 x 4.6 x 6.8 cm. The double wall endometrial thickness is 16 mm. The uterus is smooth in contour and has normal myometrial echogenicity. No visible fibroid. Adnexa: Both ovaries are visualized. There is normal color flow to the adnexa. There is no ovarian torsion. There is no pelvic ascites or fluid collection. Right ovary measures 2.2 x 1.2 x 1.1 cm, volume 1.5 mL. Left ovary measures 2.0 x 1.1 x 1.3 cm, volume 1.4 mL. US/US pelvic and transvaginal IMPRESSION: There is postmenopausal endometrial stripe thickening to 1.6 cm. Gynecology evaluation and management is recommended, with consideration for tissue sampling, if clinically indicated. Dictated By: Tim King MD Signed By: <Electronically signed by Tim King MD in OV> 08/26/23 1746 DD/ 1630 TD/TT: Configuration Technician: RENITA Assessment & Plan Assessment & Plan (1) Postmenopausal bleeding: Code(s): N95.0 - Postmenopausal bleeding (2) Encounter to discuss test results: Code(s): Z71.2 - Person consulting for explanation of examination or test findings Plan Discussed: Ultrasound findings with thickened endometrium. Recommend she have an endometrial biopsy. Anticipatory guidance for the biopsy reviewed today including eating and having fluids and taking 2 Tylenol 1 hour before her procedure. Purpose of the biopsy explained to rule out any atypical, pre cancerous or cancerous findings. All of her questions and concerns were addressed to the best of my ability and shared decision making. She is agreeable to the plan of care and will schedule her appointment for the EMB next week or the week after. Advised to schedule her follow up with her primary care for her thyroid evaluation. This note is constructed using voice recognition software. While every effort has been made to ensure accuracy, excavator operator errors may have been included. Coding Level of Care Code Est Pt Level 3 (47471) Diagnoses Postmenopausal bleeding N95.0 Encounter to discuss test results Z71.2
== END 2023-09-30 16:14 | disposition home or self-care (01) ==
LOC: HO.HWS 15:41
PROVIDERS: PCP Nurse Practitioner Family; Visit Provider Advanced Practice Midwife
DX: N95.0 Postmenopausal bleeding (principal); Z71.2 Person consulting for explanation of examination or test findings
CPT/HCPCS: 99213

== ENCOUNTER → 2023-09-30 15:41 | Outpatient (BNVA) | payer OTHER, SELFPAY | PROVIDERS: PCP Nurse Practitioner Family; Visit Provider Advanced Practice Midwife ==

== ENCOUNTER 2023-10-07 09:03 | Outpatient (REF) | payer OTHER, SELFPAY | END 2023-10-07 09:04 | disposition home or self-care (01) | LOC: HO.LNP 09:03 | PROVIDERS: PCP Nurse Practitioner Family; Visit Provider Internal Medicine | DX: N95.0 Postmenopausal bleeding (principal); R94.31 Abnormal electrocardiogram [ECG] [EKG]; E78.5 Hyperlipidemia, unspecified; I25.10 Atherosclerotic heart disease of native coronary artery without angina pectoris | CPT/HCPCS: 58100; 88305; 93005 ==

== ENCOUNTER 2023-10-07 09:03 | Outpatient (AMB) | payer OTHER, SELFPAY ==
[2023-10-07 09:04] VITALS: BP 110/64; PULSE 64; BMI 25.2
--- NOTE | 2023-10-07 09:04 | A.OFFVIS_ITS ---
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 Her brothers were quite young in the 30s and had fatal myocardial infarctions. Hence she is concerned. Patient herself does not have any cardiac history and she does not have any major comorbidities either. No cardiac symptoms. She states that she had rheumatic fever around the age of 19. 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 Sexual orientation: Straight/Heterosexual Gender identity: Female Review of Systems Const Denies chills, Denies fatigue, Denies fever(s), Denies frequent falls, Denies weakness, Denies weight gain and Denies weight loss ENT Denies dizziness Card Denies chest pain, Denies leg edema, Denies lightheadedness, Denies palpitations, Denies dyspnea, Denies dyspnea on exertion and Denies orthopnea Resp Denies cough, Denies dyspnea and Denies dyspnea on exertion GI Denies bloating and Denies change in bowel habits Musc Denies muscle weakness, Denies numbness and Denies tingling Neuro Denies dizziness, Denies frequent falls, Denies numbness, Denies tingling and Denies weakness Endo Denies fatigue and Denies palpitations Physical Exam Vital Signs: Last Vital Signs Pulse 64 10/07/23 09:04 BP 110/64 10/07/23 09:04 BMI result Body Mass Index 25.2 Const General: comfortable and no acute distress Orientation/consciousness: patient oriented x3 HEENT Other: Unremarkable Head: Yes normal to inspection Neck Neck: Yes normal visual inspection Chest Chest palpation & inspection: normal inspection of the chest Resp Auscultation: clear to auscultation bilaterally Cardio Palpation: normal PMI Heart sounds: S1 normal heart sound present, S2 normal heart sound present, no gallops, no murmurs and no rubs GI Palpation (GI): Soft to palpation Back/Spine/Pelvis Other: unremarkable Skin General skin exam: no rashes or lesions noted Neuro General: patient oriented x3 Extrem General: Yes normal to inspection Psych Mental Status: mental status grossly normal Office Procedures EKG Details: EKG with sinus rhythm at 64/Min; inferior as well as anterolateral downsloping STs with T inversions. No previous EKG for comparison. [id number], Complete Assessment & Plan Assessment & Plan (1) Abnormal EKG: Code(s): R94.31 - Abnormal electrocardiogram [ECG] [EKG] Category: Medical (2) Hyperlipidemia: Code(s): E78.5 - Hyperlipidemia, unspecified Category: Medical (3) FHx: early [place]: Comment: brothers age 32 and 35 from [place] Code(s): Z82.49 - Family history of ischemic heart disease and other diseases of the circulatory system Category: Medical (4) Family history of premature CAD: Code(s): Z82.49 - Family history of ischemic heart disease and other diseases of the circulatory system Category: Medical Plan EKG looks abnormal with inferior/anterolateral downsloping STs with T inversions concerning for LAD territory ischemia. With a strong family history of fatal myocardial infarctions in her brother, recommend workup even though she has no overt symptoms. We can get a coronary CTA for further evaluation. Echocardiogram for any wall motion abnormalities/LVEF. Plan discussed with patient and she is agreeable. We can see her back in follow-up once these are completed. Orders: Orders CT Cardiac Coronary Angio Today I25.10 - Atherosclerotic heart disease of [place] coronary artery without angina pectoris CA echo transthoracic complete Today I25.10 - Atherosclerotic heart disease of [place] coronary artery without angina pectoris Basic Metabolic Panel Today E78.5 - Hyperlipidemia, unspecified, R94.31 - Abnormal electrocardiogram [ECG] [EKG] Coding Level of Care Code New Pt Level 4 (92299) Diagnoses Abnormal EKG R94.31 Hyperlipidemia E78.5 FHx: early [place] Z82.49 Family history of premature CAD Z82.49 CPT Codes EKG - CPT: 38923-Qkefjcwyhepwphfqx, Complete ([id number])
== END 2023-10-07 09:35 | disposition home or self-care (01) ==
PROVIDERS: PCP Nurse Practitioner Family; Visit Provider Internal Medicine
DX: R94.31 Abnormal electrocardiogram [ECG] [EKG] (principal); E78.5 Hyperlipidemia, unspecified; Z82.49 Family history of ischemic heart disease and other diseases of the circulatory system
CPT/HCPCS: 93010; 99204

== ENCOUNTER 2023-10-07 10:06 | Outpatient (AMB) | payer OTHER, SELFPAY ==
--- NOTE | 2023-10-07 12:38 | A.OFFVIS_ITS ---
Intake Visit Reasons: EMB/30 mins Allergies No Known Allergies Allergy (Verified 09/30/23 15:50) HPI Comments Details: Patient is here today for an endometrial biopsy due to postmenopausal bleeding she reports she has been spotting for the last month. Recent ultrasound showed an endometrial lining measurement of 1.6 cm. She also reports she had a history abnormal uterine bleeding and hyperplasia in 2018, she thinks was done through the [facility] in [place]. No records are available today. Recent FSH was 40.8. 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 Sexual orientation: Straight/Heterosexual Gender identity: Female Review of Systems Const All systems reviewed & are unremarkable except as noted in HPI and below Physical Exam Const General: cooperative, healthy appearing and no acute distress Orientation/consciousness: patient oriented x3 GI Inspection: Yes normal to inspection Palpation (GI): Soft to palpation and Other GI palpation findings present (Nontender) Rectal Exam - Female: visual inspection normal General: Yes bladder normal to palpation External Female Exam: normal appearance of the urethra Speculum Exam - Vagina: normal appearance of the vagina, normal palpation, normal vaginal discharge and vaginal bleeding Speculum Exam - Cervix: normal appearance of the cervix and normal palpation Bimanual exam- vagina & uterus: normal bimanual exam, normal palpation, uterine size normal, bladder normal to palpation, normal palpation, uterine shape normal and non-tender Bimanual Exam- Adnexa, other: normal adnexae OB/external & speculum: vaginal bleeding Neuro General: patient oriented x3 Office Procedures Endometrial Biopsy Details: The patient is here today for an endometrial biopsy due to postmenopausal bleeding to rule out any pathology including atypical, hyperplasia or cancer cells of the uterus. She was counseled regarding anticipatory guidance for the procedure including the risks for pain, infection, bleeding, perforation, potential injury to the tissues may include the cervix, uterus, tubes, bladder and bowels. These injuries may include further treatment and evaluation including surgery, blood transfusions, antibiotics, hospitalizations and anesthesia. Permanent injury and scarring can occur. She was consented for the procedure, and the consent forms were signed. She is agreeable to have the procedure today. All questions were answered. Endometrial Biopsy Procedure: The patient was placed in the dorsal lithotomy position and a sterile speculum inserted. Using aseptic technique for the procedure. The cervix was cleansed with Betadine x 3 swabs. A single toothed tenaculum was placed on the cervix for stabilization and the uterus was sounded to 8 cm with a 4mm pipelle for 3 passes. Minimal bleeding was observed. The tissue sample was placed in formalin in a patient labeled container by staff assisting and sent to the pathology department for processing and interpretation. The patient tolerate the procedure well and was in good condition when leaving the department. Endometrial Biopsy Post Procedure Care: Nothing in the vagina including: tampons, douching or intimacy until all the bleeding has subsided. There may be some post procedure bleeding for several days, this bleeding is usually light and may turn to a light brown or pink color. Mild cramps may occurs. Nothing in the vaginal including: tampons, douching, or intimacy until all the bleeding has subsided. You may take an over the counter mild analgesic such as Tylenol or Advil (if no allergies) per the manufactures recommendation on dosing, frequency, and follow the directions completely. Call the office if any: fever (over 100.4), flu like symptoms, abdominal pain (worse than cramping), foul smelling, infected appearing vaginal discharge, or heavy bleeding. Return to the office in 2 weeks for results and plan of care. This note is constructed using voice recognition software. While every effort has been made to ensure accuracy, senior staff psychologist errors may have been included. [id number] Biopsy Assessment & Plan Assessment & Plan (1) Postmenopausal bleeding: Code(s): N95.0 - Postmenopausal bleeding Plan See endometrial biopsy procedure notes. Release records from the [facility] and possibly [facility] records patient is going to attempt to locate her records. Orders: Orders Surgical Today N95.0 - Postmenopausal bleeding Coding Level of Care Code Procedure Only Diagnoses Postmenopausal bleeding N95.0 CPT Codes Endometrial Biopsy - CPT: 20397-Xoltsninbsg Biopsy ([id number])
== END 2023-10-07 11:47 | disposition home or self-care (01) ==
PROVIDERS: PCP Nurse Practitioner Family; Visit Provider Advanced Practice Midwife
DX: N95.0 Postmenopausal bleeding (principal)
CPT/HCPCS: 58100

== ENCOUNTER → 2023-10-30 08:02 | Outpatient (REF) | payer OTHER, SELFPAY ==
--- NOTE | 2023-10-30 08:05 | CA_ITS ---
Transthoracic Echocardiogram Patient (Last, First, Middle): Esdras Almonte Pinho Gender: Female Date of : 1965 Age: 57 Procedure Date: 10/30/2023 Procedure Type: Transthoracic Echocardiogram Location: OP Height: 157.48 cm Weight: 62.14 kg BSA: 1.63 m2 Heart Rate: 54 bpm BP: 100 / 60 mmHg Astronomy Instructor: JESENIA Referring MD: Petr Kovacs MD Symptoms: I25.10 - Atherosclerotic heart disease of [place] coronary artery without... Study Quality: Adequate ECG Rhythm: Bradycardia Conclusions: - Normal left ventricular size, thickness, systolic function, and wall motion. The visually estimated ejection fraction is between 55-60%. Diastolic function is normal for age. Borderline GLS -17.5%. - Normal right ventricular cavity size and systolic function. Findings Left Ventricle Normal left ventricular size, thickness, systolic function, and wall motion. The visually estimated ejection fraction is between 55-60%. Diastolic function is normal for age. Right Ventricle Normal right ventricular cavity size and systolic function. Atria The left atrium is normal in size. The right atrium is normal in size. Aortic Valve Normal aortic valve structure and function. There is no aortic valve stenosis. There is no aortic valve regurgitation. Mitral Valve Normal mitral valve structure and function. There is no mitral valve regurgitation. There is no mitral valve stenosis. Tricuspid Valve Normal tricuspid valve structure. There is trace tricuspid valve regurgitation. Normal right atrial pressure. There is no evidence of pulmonary hypertension. Great Vessels There is mild dilatation of the ascending aorta measuring 3.30 cm. The visualized portions of the pulmonary artery and branches are normal. Venous The inferior vena cava is normal in size and collapses greater than 50% with inspiration. Pericardium/Pleural There is no evidence of pericardial effusion. Prior Study Comparison No prior study available for comparison. Measurements 2D Linear Measurements IVSd: 0.80 0.6-0.9/0.6-1.0 cm LVIDd: 4.31 3.9-5.3/4.2-5.9 cm LVIDd Index: 2.64 2.4-3.2/2.2-3.1 cm/m2 LVIDs: 2.74 2.0-3.6 cm LVPWd: 0.78 0.7-1.1 cm LA Diam: 3.00 2.7-3.8/3.0-4.0 cm LAIDs Index: 1.84 1.5-2.3 cm/m2 LV Mass: 128.60 67-162/88-224 g LV Mass Index: 78.89 43-95/49-115 g/m2 LVOT Diam: 1.90 3.0+(-)1.3 cm 2D Systolic Function EF 4C: 58.30 >55% EF 2C: 62.10 >55% EF BiP: 60.30 >55% Mitral Valve MV Pk E: 0.93 MV PK A: 0.69 MV Decel Time: 178.00 E/A: 1.30 E'Lateral: 11.50 E'Medial: 7.51 E/E' Med: 12.30 E/E' Lat: 8.00 PHT: 52.00 MVA PHT: 4.23 Decel Conecuh: 5.21 Aortic Valve AoV Pk Garret: 1.09 AoV Mn Garret: 0.82 AoV VTI: 0.29 AoV Pk Grad: 5.00 Aov Mn Grad: 3.00 ARJUN Cont.VTI: 1.90 LVOT LVOT Pk Garret: 0.85 LVOT Mn Garret: 0.61 LVOT VTI: 0.20 LVOT Pk Grad: 3.00 LVOT Mn Grad: 2.00 LVOT Diam: 1.90 LVOT Area: 2.84 Diastolic Function MV Pk E: 0.93 MV Pk A: 0.69 E/A: 1.30 E'Medial: 7.51 E/E' Med: 12.30 E' Laterial: 11.50 E/E' Lat: 8.00 Right Ventricle TAPSE (mm): 23.60 TVS' Garret: 12.10 Tricuspid Valve TR Pk Garret: 1.64 TR Pk Grad: 11.00 RA Press: 3.00 RVSP: 14.00 Great Vessels Aorta Sinus of Valsalva: 3.20 2.0-3.5 cm Ao Asc: 3.30 2.1-3.4 cm Pulmonary Valve PV Pk Garret: 0.73 Peak PV Grad: 2.00 Updated in Other Vendor System with Status of Final Vinay Arcos MD electronically signed on 11/01/2023 10:52:26 PM with status of Final
== END ==
LOC: HO.CARD 08:02
PROVIDERS: Visit Provider Internal Medicine
DX: I25.10 Atherosclerotic heart disease of native coronary artery without angina pectoris (principal)
CPT/HCPCS: 93306; 93356

== ENCOUNTER → 2023-10-30 08:05 | Outpatient (BNV) | payer OTHER, SELFPAY | PROVIDERS: Visit Provider Internal Medicine Cardiovascular Disease | DX: I25.10 Atherosclerotic heart disease of native coronary artery without angina pectoris (principal) | CPT/HCPCS: 93306; 93356 ==

== ENCOUNTER 2023-11-06 15:35 | Outpatient (AMB) | payer OTHER, SELFPAY ==
--- NOTE | 2023-11-06 15:36 | A.OFFVIS_ITS ---
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 History of thickened endometrium on ultrasound. 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 Sexual orientation: Straight/Heterosexual Gender identity: Female Review of Systems Const All systems reviewed & are unremarkable except as noted in HPI and below Endo Reports no additional complaints Physical Exam Const General: cooperative, healthy appearing and no acute distress Psych Appearance: well kempt Attitude: cooperative Thought process: Normal thought process present Assessment & Plan Assessment & Plan (1) Postmenopausal bleeding: Code(s): N95.0 - Postmenopausal bleeding (2) Encounter to discuss test results: Code(s): Z71.2 - Person consulting for explanation of examination or test findings (3) Endometrial thickening on ultrasound: Code(s): R93.89 - Abnormal findings on diagnostic imaging of other specified body structures Plan Discussed: Endometrial biopsy results see note, proliferative with polyp tissue fragments. Discuss treatment for the prevention of endometrial carcinoma to include Mirena IUD, also recommendations of uterine sampling every 3-6 months for the 1st year. Advised hysteroscopy consult due to the polyp fragments for complete removal. All of her questions and concerns were addressed to the best of my ability and shared decision making. She is agreeable to the plan of care. This note is constructed using voice recognition software. While every effort has been made to ensure accuracy, workers' compensation magistrate errors may have been included. Coding Level of Care Code Est Pt Level 3 (84330) Diagnoses Postmenopausal bleeding N95.0 Encounter to discuss test results Z71.2 Endometrial thickening on ultrasound R93.89
== END 2023-11-06 16:16 | disposition home or self-care (01) ==
LOC: HO.HWS 15:35
PROVIDERS: Visit Provider Advanced Practice Midwife
DX: N95.0 Postmenopausal bleeding (principal); Z71.2 Person consulting for explanation of examination or test findings; R93.89 Abnormal findings on diagnostic imaging of other specified body structures
CPT/HCPCS: 99213

== ENCOUNTER → 2023-11-06 15:35 | Outpatient (BNVA) | payer OTHER, SELFPAY | PROVIDERS: Visit Provider Advanced Practice Midwife ==

== ENCOUNTER 2024-01-14 08:43 | Outpatient (REF) | payer OTHER, SELFPAY ==
[2024-01-14 09:38] LABS: Anion Gap 8 (12-20); Blood Urea Nitrogen 8 mg/dL (9-16); Calcium 9.2 mg/dL (8.4-10.2); Carbon Dioxide 29 mmol/L (22-29); Chloride 104 mmol/L (96-108); Cholesterol 156 mg/dL (<200); Estimated Glomerular Filt Rate > 60; Glucose Random 88 mg/dL (60-115); HDL Cholesterol 38 mg/dL (>40); LDL Cholesterol Calculated 95 mg/dL (<100); Sodium 137 mmol/L (135-145); Triglycerides 116 mg/dL (<150)
[2024-01-14 10:00] LABS: Free T4 (Free Thyroxine) 0.95 ng/dL (0.71-1.85); Thyroid Stimulating Hormone 3.79 uIU/mL (0.32-4.0)
[2024-01-15 11:04] LABS: Thyroglobulin Antibodies <1 IU/mL (< or = 1)
[2024-01-15 18:34] LABS: Thyroid Peroxidase Antibodies <1 IU/mL (<9)
== END 2024-01-14 08:44 | disposition home or self-care (01) ==
LOC: HO.LAB 08:43
PROVIDERS: PCP Nurse Practitioner Family; Visit Provider Nurse Practitioner Family
DX: E78.5 Hyperlipidemia, unspecified (principal); E03.8 Other specified hypothyroidism; R94.31 Abnormal electrocardiogram [ECG] [EKG]
CPT/HCPCS: 36415; 80048; 80061; 84439; 84443; 86376; 86800

== ENCOUNTER 2024-01-18 07:47 | Outpatient (AMB) | payer OTHER, SELFPAY ==
--- NOTE | 2024-01-18 07:54 | A.OFFVIS_ITS ---
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 Pelvic ultrasound done in 09/10 showed the following: Uterus: The uterus is anteverted and anteflexed. The uterus measures 8.8 x 4.6 x 6.8 cm. The double wall endometrial thickness is 16 mm. The uterus is smooth in contour and has normal myometrial echogenicity. No visible fibroid. Adnexa: Both ovaries are visualized. There is normal color flow to the adnexa. There is no ovarian torsion. There is no pelvic ascites or fluid collection. Right ovary measures 2.2 x 1.2 x 1.1 cm, volume 1.5 mL. Left ovary measures 2.0 x 1.1 x 1.3 cm, volume 1.4 mL. Office EMB pathology showed the following: Endometrium, biopsy: Benign disordered proliferative endometrium with extensive glandular and stromal breakdown, and fragments of benign endometrial, lower uterine segment and endocervical polyps; no atypia or carcinoma Last co testing was in 08/11 was negative [facility] Medical History Postmenopausal bleeding Gastric ulcer Anemia Family History Father Prostate cancer Bladder cancer Mother HTN (hypertension) Brother Myocardial infarction Social History Household Members Other:: daughters Housing: House Alcohol intake: current Alcohol intake frequency: holidays/special occasions only Patient Tobacco Use Status: Never used Tobacco e-Cigarette/Vaping Use: Never Used Current occupational status: employed 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 Sexual orientation: Straight/Heterosexual Gender identity: Female Female Reproductive History Menstrual Date of last menstrual period: 02/16/20 Total pregnancies: 2 Full term: 2 Review of Systems Card Reports as per HPI and Reports no additional complaints Resp Reports as per HPI and Reports no additional complaints GI Reports as per HPI and Reports no additional complaints Reports as per HPI Physical Exam Const General: cooperative, healthy appearing and comfortable Resp Effort & Inspection: normal respiratory effort Auscultation: clear to auscultation bilaterally Percussion: percussion normal Cardio Palpation: normal PMI Rate: regular rate Rhythm: regular rhythm Heart sounds: no murmurs and no rubs Peripheral pulses: Peripheral pulses 2+ throughout GI Inspection: Yes normal to inspection Palpation (GI): Soft to palpation, nontender, no guarding, not rigid and No hepatosplenomegaly present Percussion: Yes normal to percussion Auscultation: normal bowel sounds Rectal Exam - Female: deferred Assessment & Plan Assessment & Plan (1) Postmenopausal bleeding: Code(s): N95.0 - Postmenopausal bleeding Plan: Discussed with the patient the pelvic ultrasound findings, the endometrial stripe thickenss measured by ultrasound was more than 4mm. The negative predictive value, positive predictive value, Sensitivity, specificity of using ultrasound measurement of endometrial stripe to detecting endometrial pathology including hyperplasia , polyp or cancer were discussed with the patient. In addition discussed with the patient the endometrial biopsy pathology showing fragments of endometrial polyp. Recommended to the patient that the next step is an endometrial sampling via hysteroscopy D&C possible polypectomy versus endometrial biopsy to r/o endometrial pathology including hyperplasia or cancer. All the pros and cons risks and benefits of each approach were discussed with the patient, endometrial biopsy being less invasive, office procedure with less sensitivity and inability diagnose a polyp and removal versus hysteroscopy done under anesthesia more invasive more sensitive to endometrial cancer and possibility of diagnosing and endometrial polyp with the possibility of polypectomy. All questions were answered pt verbalized understanding and decided to proceed with hysteroscopy D&C possible polypectomy/myomectomy. Discussed with the patient the procedure , all benefits and risks including but not limited to inability to complete the procedure , insufficient endometrial tissue for a complete evaluation of the endometrial cavity , bleeding, infection, possible need for blood transfusion with all its risk ( HIV,syphilis, Hepatitis, anaphylaxis shock, others..), injury to bladder, rectum, possible need for laparoscopy/laparotomy or hysterectomy. The patient verbalized understanding and signed the consent. Instructions given the patient to stay NPO after midnight the day prior to the procedure and to take only the specific medication (s) discussed the morning of the surgical procedure and to schedule a 2 week postoperative appointment Coding Level of Care Code Est Pt Level 3 (94930) Diagnoses Postmenopausal bleeding N95.0
[2024-01-18 07:58] VITALS: BMI 25.0
== END 2024-01-18 08:40 | disposition home or self-care (01) ==
PROVIDERS: Visit Provider Obstetrics & Gynecology
DX: N95.0 Postmenopausal bleeding (principal)
CPT/HCPCS: 99213

== ENCOUNTER → 2024-01-18 07:47 | Outpatient (BNVA) | payer OTHER, SELFPAY | PROVIDERS: Visit Provider Obstetrics & Gynecology ==

== ENCOUNTER 2024-01-21 08:36 | Outpatient (AMB) | payer OTHER, SELFPAY ==
[2024-01-21 08:39] VITALS: BP 124/62; PULSE 58; BMI 26.1
--- NOTE | 2024-01-21 08:39 | MHC.OFFVIS ---
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 Recently seen in consultation regarding family history of premature CAD. Her brothers were quite young in the 30s and had fatal myocardial infarctions. Hence she is concerned. Patient herself does not have any cardiac history and she does not have any major comorbidities either. No cardiac symptoms. She states that she had rheumatic fever around the age of 19. She has completed coronary CTA and echocardiogram. 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 Sexual orientation: Straight/Heterosexual Gender identity: Female Review of Systems Const Denies chills, Denies fatigue, Denies fever(s), Denies frequent falls, Denies weakness, Denies weight gain and Denies weight loss ENT Denies dizziness Card Denies chest pain, Denies leg edema, Denies lightheadedness, Denies palpitations, Denies dyspnea and Denies dyspnea on exertion Resp Denies cough, Denies dyspnea and Denies dyspnea on exertion GI Denies hematochezia Musc Denies abnormal gait, Denies muscle weakness, Denies numbness, Denies radiating pain into limb and Denies tingling Neuro Denies abnormal gait, Denies dizziness, Denies frequent falls, Denies numbness, Denies tingling and Denies weakness Endo Denies fatigue and Denies palpitations Physical Exam Vital Signs: Last Vital Signs Pulse 58 01/21/24 08:39 BP 124/62 01/21/24 08:39 BMI result Body Mass Index 26.1 Const General: comfortable and no acute distress Orientation/consciousness: patient oriented x3 HEENT Other: Unremarkable Head: Yes normal to inspection Neck Neck: Yes normal visual inspection Chest Chest palpation & inspection: normal inspection of the chest Resp Auscultation: clear to auscultation bilaterally Cardio Palpation: normal PMI Heart sounds: S1 normal heart sound present, S2 normal heart sound present, no gallops, no murmurs and no rubs GI Palpation (GI): Soft to palpation Back/Spine/Pelvis Other: unremarkable Skin General skin exam: no rashes or lesions noted Neuro General: patient oriented x3 Extrem General: Yes normal to inspection Psych Mental Status: mental status grossly normal Assessment & Plan Assessment & Plan (1) Abnormal EKG: Code(s): R94.31 - Abnormal electrocardiogram [ECG] [EKG] Category: Medical (2) Hyperlipidemia: Code(s): E78.5 - Hyperlipidemia, unspecified Category: Medical (3) FHx: early [place]: Comment: brothers age 32 and 35 from [place] Code(s): Z82.49 - Family history of ischemic heart disease and other diseases of the circulatory system Category: Medical (4) Family history of premature CAD: Code(s): Z82.49 - Family history of ischemic heart disease and other diseases of the circulatory system Category: Medical Plan EKG with inferior/anterolateral downsloping STs with T inversions. Echocardiogram with LVEF of 55-60%. No significant valvular findings and otherwise unremarkable. Coronary CTA shows no angiographic evidence of coronary disease. Hence suspect EKG findings are just nonspecific. Her blood pressure is well controlled and cholesterol is also reasonable. Mainly lifestyle measures to reduce the risk of coronary disease in the future. Otherwise reassurance. She will call us with any ongoing concerns. Coding Level of Care Code Est Pt Level 3 (29495) Diagnoses Abnormal EKG R94.31 Hyperlipidemia E78.5 FHx: early [place] Z82.49 Family history of premature CAD Z82.49
== END 2024-01-21 09:02 | disposition home or self-care (01) ==
PROVIDERS: PCP Nurse Practitioner Family; Visit Provider Internal Medicine
DX: R94.31 Abnormal electrocardiogram [ECG] [EKG] (principal); E78.5 Hyperlipidemia, unspecified; Z82.49 Family history of ischemic heart disease and other diseases of the circulatory system
CPT/HCPCS: 99213

== ENCOUNTER → 2024-01-21 08:36 | Outpatient (BNVA) | payer OTHER, SELFPAY | PROVIDERS: PCP Nurse Practitioner Family; Visit Provider Internal Medicine ==

== ENCOUNTER 2024-02-12 09:39 | Day surgery (SDC) | payer OTHER, SELFPAY ==
[2024-02-10 09:52] VITALS: BMI 26.0
--- NOTE | 2024-02-11 10:32 | P.CONAN_ITS ---
Documented by User: Yanni Schroeder NP 02/11/24 10:33 HPI - Anesthesia Eval Consult details Narrative: 58yo F for D&C Hysteroscopy,possible myomectomy,possible polypectomy PMFSH Active Problems Active Problems: All Active Problems Abnormal EKG (Acute) Family history of premature CAD (Acute) Hyperlipidemia (Acute) FHx: early [place] (Acute) Subclinical hypothyroidism (Acute) Laboratory exam ordered as part of routine general medical examination (Acute) Screening for eye condition (Acute) Cervical cancer screening (Acute) Helicobacter pylori gastritis (Acute) Duodenal ulcer (Acute) Anemia (Acute) Colon cancer screening (Acute) Screening for breast cancer (Acute) Normal physical exam (Acute) Past Medical History Medical History Ascending aorta dilatation Family history of cardiac disorder Rheumatic fever Subclinical hypothyroidism Postmenopausal bleeding Gastric ulcer Anemia Family History Family History Father Prostate cancer Bladder cancer Mother HTN (hypertension) Brother Myocardial infarction Family history of problems with anesthesia: No Surgical History Surgical History History of esophagogastroduodenoscopy (EGD) H/O colonoscopy History of Problems with Anesthesia: No Social History Social History Household Members Other:: daughters Housing: House Alcohol intake: current Alcohol intake frequency: holidays/special occasions only Patient Tobacco Use Status: Never used Tobacco e-Cigarette/Vaping Use: Never Used Use of substances other than those prescribed or required for medical reasons: No Are you DNR?: No Advance Directives: No Advance Directives Information Provided: Yes Recently lost weight without trying: No Nutrition Risks: No Nutritional Risk Current occupational status: employed 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 Sexual orientation: Straight/Heterosexual Gender identity: Female Meds Allergies Allergy/AdvReac Type Severity Reaction Status Date / Time No Known Allergies Allergy Verified 02/12/24 10:07 Home Medications ?Medication ?Instructions ?Recorded ?Confirmed ?Last Taken ?Type cholecalciferol (vitamin D3) 25 25 mcg PO DAILY 08/14/23 02/12/24 02/11/24 History mcg (1,000 unit) capsule multivitamin 1 tab PO DAILY 08/14/23 02/12/24 02/11/24 History Exam Height,Weight and Vital Signs: Height 5 ft 2 in Weight 64.41 kg Pertinent Lab Results Pertinent Lab Results: Laboratory Tests 06/26/23 01/14/24 08:58 08:58 WBC 7.9 Hgb 13.2 Hct 39.3 Plt Count 237 Sodium 137 Potassium 4.0 Chloride 104 Carbon Dioxide 29 BUN 8 L Creatinine 0.73 Narrative Narrative: ECHO 10/2023 Conclusions: - Normal left ventricular size, thickness, systolic function, and wall motion. The visually estimated ejection fraction is between 55-60%. Diastolic function is normal for age. Borderline GLS -17.5%. - Normal right ventricular cavity size and systolic function. Assessment and Plan Assessment Anesthesia Assessment: Chart Reviewed Final Anesthetic Review Family History of Problems with Anesthesia: No History of Problems with Anesthesia: No Documented by User: Latrice Dueñas MD 02/12/24 10:50 PMFSH Past Medical History Medical History Ascending aorta dilatation Family history of cardiac disorder Rheumatic fever Subclinical hypothyroidism Postmenopausal bleeding Gastric ulcer Anemia Family History Family History Father Prostate cancer Bladder cancer Mother HTN (hypertension) Brother Myocardial infarction Family history of problems with anesthesia: No Surgical History Surgical History History of esophagogastroduodenoscopy (EGD) H/O colonoscopy History of Problems with Anesthesia: No Social History Social History Household Members Other:: daughters Housing: House Alcohol intake: current Alcohol intake frequency: holidays/special occasions only Patient Tobacco Use Status: Never used Tobacco e-Cigarette/Vaping Use: Never Used Use of substances other than those prescribed or required for medical reasons: No Are you DNR?: No Advance Directives: No Advance Directives Information Provided: Yes Recently lost weight without trying: No Nutrition Risks: No Nutritional Risk Current occupational status: employed 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 Sexual orientation: Straight/Heterosexual Gender identity: Female Meds Allergies Allergy/AdvReac Type Severity Reaction Status Date / Time No Known Allergies Allergy Verified 02/12/24 10:07 Home Medications ?Medication ?Instructions ?Recorded ?Confirmed ?Last Taken ?Type cholecalciferol (vitamin D3) 25 25 mcg PO DAILY 08/14/23 02/12/24 02/11/24 History mcg (1,000 unit) capsule multivitamin 1 tab PO DAILY 08/14/23 02/12/24 02/11/24 History Exam Height,Weight and Vital Signs: Height 5 ft 2 in Weight 64.41 kg Vital Signs Temp Pulse Resp BP Pulse Ox O2 Del Method 02/12/24 10:06 97.9 F 54 16 97/45 L 99 Room Air Airway Mallampati Class: II TM Dist: >3cm Neck ROM: Full Loose/Missing/Broken Teeth: No Heart: RRR Lungs: CTAB Assessment and Plan Assessment Anesthesia Assessment: Anesthesia Plan Discussed and Chart Reviewed Final Anesthetic Review Family History of Problems with Anesthesia: No History of Problems with Anesthesia: No NPO: Yes ASA Class: II Final Preanesthetic Review: No Changes in Pt Med Stat, Meds/Allgs Chart Reviewed, Consent Obtained/Reviewed and Anes Risks/Benef Reviewed Patient Risk: Low Procedure Risk: Low Assessment/Block/Sedation in SS: Assess/Block/Sedation-SS Anesthetic Plan Anesthetic Plan: GA Disposition: Standard PACU
[2024-02-12 09:43] VITALS: BMI 25.1
[2024-02-12 10:06] VITALS: BP 97/45; PULSE 54; RESP 16; TEMP 36.6; O2SAT 99
[2024-02-12] MEDS: Lactated Ringers 1,000 ML 100 ML IVCONT (10:07)
--- NOTE | 2024-02-12 10:48 | MHC.SHP ---
Pre-Procedural Eval Section A - 24 Hr Update-Section A only Date of Service: 02/12/24 The patient is an INPATIENT: No Changes since office visit: No Cold of Flu in the past 2 weeks, No New Medical Problems, No Changes in Medication and No Patient answered all questions The patient has been examined within 24 hours of the surgical procedure. The History & Physical has been completed within 30 days and I have reviewed it.: Yes Section B - Complete if H&P > 30 days Chief Complaint: Postmenopausal bleeding Allergies: Allergies Allergy/AdvReac Type Severity Reaction Status Date / Time No Known Allergies Allergy Verified 02/12/24 10:07 Plan Diagnosis/Plan: Unchanged I have reviewed the history and physical and performed a pertinent physical examination on my patient. No changes have occurred unless specified. Time Spent With Patient Time: Total time managing care of this patient today ____ minutes.
--- NOTE | 2024-02-12 11:53 | PM.OP ---
Brief Operative Note Date of Service: 02/12/24 Pre-op diagnosis: Postmenopausal bleeding, endometrial polyp by EMB pathology Post-op diagnosis: same Procedure: Hysteroscopy D&C, Polypectomy Surgeon: Martin Zhu MD Anesthesia: GLMA Was an Dry Cleaner Helper used for this Procedure?: No Estimated blood loss (mL): 0 Pathology: other (Endometrial Scrapping. Polyp) Condition: stable Disposition: PACU
--- NOTE | 2024-02-12 11:53 | W.PM.OPN ---
Operative Note Operative Note Date of Service: 02/12/24 Narrative: Preop Diagnosis: Postmenopausal bleeding, Endometrial by EMB pathology Operation: Diagnostic Hysteroscopy, Dilataion & Curettage and polypectomy Post Op Diagnosis: Endometrial Polyp QBL: Minimal Anesthesia: GLMA Surgeon: Martin Zhu MD Belt Repairer: None Complication: None Pathology: Endometrial Scrapings, Endometrial polyp Procedure: The patient was put in the dorsal lithotomy position, scrubbed, and draped in the usual manner. A sterile speculum was inserted in the patient's vagina. The anterior lip of the cervix was grasped with a single tooth tenaculum. The cervix was dilated up to 5 mm, then the scope was inserted in the patient's uterus. Inspection revealed endometrial polyp. The Myosure Reach device was used; it was introduced through the operative channel and polypectomy done with no complications. The scope was then taken out from the uterine cavity, sharp curettings was carried on with minimal to moderate amount of tissues retrieved. At the end of the procedure, all instruments were taken out of the patient uterine and vaginal cavity. The single tooth tenaculum was removed and homeostasis was assured using pressure,. The patient tolerated the procedure well and was transferred to the PACU in a stable condition.
[2024-02-12 12:05] VITALS: BP 99/54; PULSE 49; RESP 16; TEMP 36.6; O2SAT 100
[2024-02-12 12:10] VITALS: BP 90/40; PULSE 43; RESP 16; O2SAT 97
[2024-02-12 12:15] VITALS: BP 91/43; PULSE 53; RESP 16; O2SAT 97
[2024-02-12 12:20] VITALS: BP 99/48; PULSE 41; RESP 16; O2SAT 99
[2024-02-12 12:35] VITALS: BP 97/56; PULSE 49; RESP 16; TEMP 36.6; O2SAT 100
== END 2024-02-12 14:34 | disposition home or self-care (01) ==
PROVIDERS: PCP Nurse Practitioner Family; Visit Provider Obstetrics & Gynecology
PROC: 0UDB8ZZ Extraction of Endometrium, Via Natural or Artificial Opening Endoscopic (ICD-10-PCS; CPT 58558; principal; 2024-02-12 11:50)
DX: N95.0 Postmenopausal bleeding (principal); N84.0 Polyp of corpus uteri; D64.9 Anemia, unspecified; Z79.899 Other long term (current) drug therapy
CPT/HCPCS: 58558; 88305; J0131; J1100; J2003; J2250; J2405; J2704; J3010

== ENCOUNTER → 2024-02-12 09:39 | Outpatient (BNV) | payer OTHER, SELFPAY | PROVIDERS: PCP Nurse Practitioner Family; Visit Provider Obstetrics & Gynecology | DX: N84.0 Polyp of corpus uteri (principal); N95.0 Postmenopausal bleeding | CPT/HCPCS: 58558 ==

== ENCOUNTER 2024-03-03 08:04 | Outpatient (AMB) | payer OTHER, SELFPAY ==
--- NOTE | 2024-03-03 08:05 | A.OFFVIS_ITS ---
Vital Signs 03/03/24 08:07 Height 5 ft 2 in Weight 130 lb BMI 23.8 Intake Visit Reasons: post op Allergies No Known Allergies Allergy (Verified 02/12/24 10:07) HPI Comments Details: The patient is presenting post hysteroscopy D&C no complaints minimal vaginal bleeding no feverishness chills or abdominal pain. The pathology showed the following: A. Endometrium, polypectomy: Fragments of endometrial polyp; no atypia identified. B. Endometrium, curettage: - Disordered weakly proliferative endometrium with patchy breakdown. - Fragments of endometrial polyp; no atypia identified The patient was initially seen few months ago by Syeda Clarke CNM regarding endometrial biopsy, pelvic ultrasound showed 16 mm endometrial stripe, this was followed by an office endometrial biopsy, the pathology showed the following: Endometrium, biopsy: Benign disordered proliferative endometrium with extensive glandular and stromal breakdown, and fragments of benign endometrial, lower uterine segment and endocervical polyps; no atypia or carcinoma Hysteroscopy D&C polypectomy was done intraoperative finding showed endometrial polyp, polypectomy done with D&C, the pathology showed the above findings. Last co testing in 08/11 was negative Last mammogram in 09/10 was BI-RADS 1 [facility] Medical History (Updated 03/03/24 @ 08:13 by Martin Zhu MD) Ascending aorta dilatation Family history of cardiac disorder Rheumatic fever Subclinical hypothyroidism Postmenopausal bleeding Gastric ulcer Anemia Surgical History History of esophagogastroduodenoscopy (EGD) H/O colonoscopy Family History Father Prostate cancer Bladder cancer Mother HTN (hypertension) Brother Myocardial infarction Social History Household Members Other:: daughters Housing: House Alcohol intake: current Alcohol intake frequency: holidays/special occasions only Patient Tobacco Use Status: Never used Tobacco e-Cigarette/Vaping Use: Never Used Current occupational status: employed 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 Sexual orientation: Straight/Heterosexual Gender identity: Female Review of Systems Const All systems reviewed & are unremarkable except as noted in HPI and below Reports as per HPI and Reports no additional complaints GI Reports no additional complaints Reports no additional complaints Physical Exam Vital Signs: BMI result Body Mass Index 23.8 Assessment & Plan Assessment & Plan (1) Postmenopausal bleeding: Comment: Thickened endometrium on ultrasound, proliferative endometrial tissue on biopsy with polyp fragments Code(s): N95.0 - Postmenopausal bleeding Category: Medical Plan: Discussed with the patient the results of the pathology of the endometrial scrapings showing proliferative endometrium. Discussed with the patient the sensitivity, specificity, positive and negative predictive value, of endometrial biopsy in detecting endometrial pathology including but not limited to endometrial hyperplasia, cancer and other pathology; in addition discussed the patient the pathology of the endometrium in post menopause is associated with an increase in the risk of endometrial hyperplasia and malignancy in patient with preferred of endometrial pathology in menopause. Recommended to the patient progesterone treatment , levo norgestrel IUD for p.o. progestins in addition to repeat endometrial biopsy every 3 months for a year. All pros and cons, risks and benefits of each were discussed with the patient. The patient decided to proceed with Mirena IUD. so a more detailed discussion about it was conducted including mechanism of action, risks (uterine perforation, infection, injury to bladder, bowel, displacement, increase in the risk of breast cancer and others) benefits (decrease the risk of future endometrial hyperplasia and carcinoma of the endometrium ...). GC/CT will be taken next visit and the patient was instructed to to schedule Mirena IUD insertion elijah and to schedule eepeat endometrial biopsy every 3 months for 1 year. Instructed the patient to call in case is vaginal bleeding bleeding recurs, schedule endometrial biopsy in 3 months and IUD insertion within week All questions answered and the patient verbalized understanding and agreed with the plan. Coding Level of Care Code Est Pt Level 3 (62115) Diagnoses Postmenopausal bleeding N95.0
[2024-03-03 08:07] VITALS: BMI 23.8
== END 2024-03-03 09:05 | disposition home or self-care (01) ==
LOC: HO.HWS 08:04
PROVIDERS: PCP Nurse Practitioner Family; Visit Provider Obstetrics & Gynecology
DX: N95.0 Postmenopausal bleeding (principal)
CPT/HCPCS: 99213

== ENCOUNTER 2024-03-10 07:31 | Outpatient (AMB) | payer OTHER, SELFPAY ==
[2024-03-10 07:38] VITALS: BP 108/60; BMI 23.4
--- NOTE | 2024-03-10 07:38 | MHC.OFFVIS ---
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 ([employer]) Accompanied by: Self / Same As Patient Allergies No Known Allergies Allergy (Verified 03/10/24 07:39) Post menopausal: Yes HPI Comments Details: Presenting for IUD insertion for proliferative endometrium in menopause complaining of bilateral breast pain with no lumps felt [facility] Medical History (Updated 03/10/24 @ 07:52 by Martin hZu MD) Ascending aorta dilatation Family history of cardiac disorder Rheumatic fever Subclinical hypothyroidism Postmenopausal bleeding Gastric ulcer Anemia Surgical History History of esophagogastroduodenoscopy (EGD) H/O colonoscopy Family History Father Prostate cancer Bladder cancer Mother HTN (hypertension) Brother Myocardial infarction Social History Household Members Other:: daughters Housing: House Alcohol intake: current Alcohol intake frequency: holidays/special occasions only Patient Tobacco Use Status: Never used Tobacco e-Cigarette/Vaping Use: Never Used Current occupational status: employed 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 Sexual orientation: Straight/Heterosexual Gender identity: Female Physical Exam Vital Signs: Last Vital Signs BP 108/60 03/10/24 07:38 BMI result Body Mass Index 23.4 Chest Chest palpation & inspection: normal inspection of the chest Breast/axilla inspection: normal inspection of the breasts, normal inspection of the axillae and abnormal inspection of the axilla Breast/axilla palpation: normal palpation of the breasts, normal palpation of the axillae and no axillary lymphadenopathy Assessment & Plan Assessment & Plan (1) Pain of both breasts: Code(s): N64.4 - Mastodynia Category: Medical Plan: Will hold off levo norgestrel IUD insertion order bilateral breast diagnostic mammogram and bilateral breast ultrasound and schedule a follow-up appointment with possible Mirena IUD insertion in case both breasts imaging are negative. All questions answered, the patient verbalized understanding. Instructions given the patient to schedule bilateral breast imaging and a follow-up appointment. Orders: Orders MM tomosynthesis diagnostic BI Today N64.4 - Mastodynia US breast LT complete Today N64.4 - Mastodynia US breast RT complete Today N64.4 - Mastodynia Coding Level of Care Code Est Pt Level 3 (45112) Diagnoses Pain of both breasts N64.4
== END 2024-03-10 07:59 | disposition home or self-care (01) ==
LOC: HO.HWS 07:32
PROVIDERS: PCP Nurse Practitioner Family; Visit Provider Obstetrics & Gynecology
DX: N64.4 Mastodynia (principal)
CPT/HCPCS: 99213

== ENCOUNTER → 2024-05-06 08:45 | Outpatient (BNV) | payer OTHER, SELFPAY | PROVIDERS: PCP Nurse Practitioner Family; Visit Provider Internal Medicine | DX: N64.4 Mastodynia (principal) | CPT/HCPCS: 76642; 77062; 77066 ==

== ENCOUNTER 2024-05-06 08:46 | Outpatient (REF) | payer OTHER, SELFPAY ==
--- NOTE | ~2024-05-06 | US_ITS ---
EXAMINATION: MM DIAGNOSTIC DIGITAL BREAST TOMOSYNTHESIS, BILATERAL Limited bilateral ultrasound. CLINICAL INFORMATION: Bilateral breast pain. COMPARISON: Mammography: Comparison is made with relevant prior exams. TECHNIQUE: Digital breast mammography with tomosynthesis is performed in both the craniocaudal and mediolateral oblique views along with computer-aided detection (CAD). Limited bilateral ultrasound. FINDINGS: There are scattered areas of fibroglandular density (ACR BI-RADS breast composition Category b). There are no significant masses, abnormal calcifications, or other abnormalities. Targeted color Doppler ultrasound scanning in the right breast from 12-6 o'clock in the area the patient's pain demonstrates normal fibronodular breast tissue. Targeted color Doppler ultrasound scanning in the left breast from 12-6 o'clock in the area the patient's pain demonstrates normal fibronodular breast tissue. Results are provided to the patient at time of visit by the technologist. US/US breast BI limited mamm only IMPRESSION: No mammographic or sonographic abnormality bilaterally in the areas of the patient's breast pain. Recommend clinical evaluation and follow-up. ASSESSMENT: BI-RADS BI-RADS 1 - Negative RECOMMENDATION: 1 year F/U This patient's information was entered into a reminder system with a target due date for their next mammogram. Electronically signed by: Roxy Aguilar DO 05/06/2024 10:26 AM ALEJO
== END 2024-05-06 08:47 | disposition home or self-care (01) ==
LOC: HO.MAMMO 08:46
PROVIDERS: PCP Nurse Practitioner Family; Visit Provider Obstetrics & Gynecology
DX: N64.4 Mastodynia (principal); R92.323 Mammographic fibroglandular density, bilateral breasts
CPT/HCPCS: 76642; 77062; 77066

== ENCOUNTER 2024-06-15 13:06 | Outpatient (AMB) | payer OTHER, SELFPAY ==
--- NOTE | 2024-06-15 13:03 | A.OFFPC_ITS ---
Intake Visit Reasons: telehealth for referral. Allergies No Known Allergies Allergy (Verified 06/15/24 13:03) Medication List - Last Reconciled 06/15/24 by TOREY Cesar cholecalciferol (vitamin D3) 25 mcg PO DAILY ferrous fumarate 324 mg PO DAILY multivitamin 1 tab PO DAILY omega-3 fatty acids 1,000 mg PO DAILY Tobacco use date assessed: 06/15/24 Dental Screening Dental Screen Date: 06/15/24 Did you have a dental visit in the last 12 months?: Yes Did you have a dental problem in the last 6 months where you did not have access to dental care?: No Was dental information given to patient?: Patient has dentist HPI HPI Comments History of Present Illness Details History of Present Illness - The patient is a 58-year-old female w ith a skin rash and hair loss. - A longstanding skin rash on the abdome n, characterized by rough skin texture, has persisted for approximately 10 years. 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 - Hair loss has been an ongoing concern, with a prior referral to [facility] that was not actioned. - The absence of acute symptoms or urgen t complaints classifies the issue as non-urgent. - The patient has adequate insurance [facility], previously noted as not requiring authorization for the dermatology visit. Assessment and Plan 1. Hair Loss: A dermatological referral will be made to assess the patient's hair loss, as the initial referral did not progress. Updated referral today to [facility] info sent via portal, 2. Skin Rash on Abdomen: A referral to [facility] is recommended to evaluate the long-standing rash on the abdomen, which has not been previously assessed. Ensuring both hair loss and skin rash are addressed in the referral is crucial. CPE scheduled in August, due in June Scheduled her July 08 at 0830. Telehealth Attestation This visit was conducted via audio communication modality, given issues with video call connectivity. Documentation accurately reflects the patient's statements and concerns as discussed during this telehealth session. The patient has been explained that this is an interactive (audio/video) telehealth encounter and what that consists of. The patient understands and wishes to proceed. eblizz platform was used. Total time spent caring for the patient today was 18 minutes. This includes time spent before the visit reviewing the chart, time spent during the visit, and time spent after the visit on documentation, reviewing laboratory results, diagnostic imaging, medications, performing a medically necessary evaluation, counseling on diagnoses, care coordination, ordering appropriate tests, ordering appropriate medications, review of tests performed by other providers, reporting test results with the patient, communication with other healthcare providers. [facility] Medical History (Updated 06/15/24 @ 16:42 by Nicole Euceda, [facility]) Anemia Ascending aorta dilatation Family history of cardiac disorder Gastric ulcer Postmenopausal bleeding Rheumatic fever Subclinical hypothyroidism Surgical History H/O colonoscopy History of esophagogastroduodenoscopy (EGD) Family History Father Prostate cancer Bladder cancer Mother HTN (hypertension) Brother Myocardial infarction Social History Household Members Other:: daughters Housing: House Alcohol intake: current Alcohol intake frequency: holidays/special occasions only Patient Tobacco Use Status: Never used Tobacco e-Cigarette/Vaping Use: Never Used Current occupational status: employed 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 1. Little interest or pleasure in doing things: not at all 2. Feeling down, depressed, or hopeless: not at all 3. Trouble falling or staying asleep, or sleeping too much: not at all 4. Feeling tired or having little energy: not at all 5. Poor appetite or overeating: not at all 6. Feeling bad about yourself - or that you are a failure or have let yourself or your family down: not at all 7. Trouble concentrating on things, such as reading the newspaper or watching television: not at all 8. Moving or speaking so slowly that other people could have noticed. Or the opposite - being so fidgety or restless that you have been moving around a lot more than usual: not at all 9. Thoughts that you would be better off or of hurting yourself in some way: not at all Total score: 0 Depression Screening Interpretation: Negative Depression Screening Done: Yes 75213 - PHQ-9 Billing: Yes Source: Developed by Drs. Farhan Moya, Isael Paredes and colleagues, with an educational octavio from [employer]. Thrive Questionnaire Date Thrive assessed: 06/15/24 I am a: Patient What is your living situation today?: I have a steady place to live Within the past 12 months, did the food you bought not last and you didn't have the money to get more?: Never true Within the past 12 months, did you worry whether your food would run out before you got money to buy more?: Never true Do you have trouble paying for medicines?: No Do you have trouble getting transportation to medical appointments?: No Do you have trouble paying your heating and electricity bill?: No Do you have trouble taking care of your child, family member or friend?: No Do you have trouble with day-to-day activities such as bathing, preparing meals, shopping, managing finances, etc.?: No Are you currently unemployed and looking for a job?: No Are you interested in more education?: No Please select the resources that you would like help with: None Currently or been in a relationship where the following occur: No concerns reported THRIVE Score: 0 AUDIT C Alcohol Use Questionnaire (AUDIT-C) 1. How often do you have a drink containing alcohol?: Never 3. How often do you have six or more drinks on one occasion?: Never Total Score: 0 Score Reviewed/Action Taken: Yes MELINDA-7 AMB Questionnaire MELINDA-7 Date MELINDA - 7 assessed: 06/15/24 Feeling nervous, anxious, or on edge: 0 = Not at all Not being able to stop or control worryin = Not at all Worrying too much about different things: 0 = Not at all Trouble relaxin = Not at all Being so restless that it is hard to sit still: 0 = Not at all Becoming easily annoyed or irritable: 0 = Not at all Feeling afraid as if something awful might happen: 0 = Not at all Total MELINDA-7 score (0-4 normal; 5-9 mild; 10-14 moderate; 15-21 severe): 0 Source: Developed by Lanny Gomez Kurt Kroenke and colleagues, with an educational octavio from [employer]. MELINDA-7 Assessment Billing MELINDA-7 Assessment Tool: MELINDA-7 Assessment 19584 Physical exam (Primary Care) Tobacco/Smoking Status: Tobacco use Status Tobacco use date assessed 06/15/24 06/15/24 15:26 Patient Tobacco Use Status Never used Tobacco 06/15/24 13:05 e-Cigarette/Vaping Use Never Used 06/15/24 13:05 PHQ-9: PHQ-9 Score PHQ-9: Total score 0 06/15/24 15:26 Depression Screening Interpretation: Negative Thrive Assessment: Date of Thrive Assessment Date Thrive assessed 06/15/24 06/15/24 15:26 Currently or been in a relationship where the following occur: No concerns reported Telehealth Telehealth Telehealth Platform: eblizz Location of provider rendering services: practice address Location of patient: address on file Patient Identification confirmed using: Name, : Yes Telehealth method: video (unable to access video, voice only ) Patient verbally consented to treatment: Yes Patient verbally consented to billing insurance company: Yes Patient informed of any privacy concerns related to visit: Yes Minutes spent on Phone/Video with Pt.: 14 Coding Level of Care Code Tele Est Pt Level 3 (11978) Complex EM visit Add On G2211 Diagnoses Skin rash R21 Hair loss L65.9 Additional Codes MELINDA-7 Assessment Billing - MELINDA-7 Assessment Tool: MELINDA-7 Assessment 10923 ([id number]) PHQ-9 - 85627 - PHQ-9 Billing: Yes ([id number]) Assessment & Plan Assessment & Plan (1) Skin rash: Code(s): R21 - Rash and other nonspecific skin eruption Category: Medical (2) Hair loss: Code(s): L65.9 - Nonscarring hair loss, unspecified Category: Medical Plan .
--- OUTSIDE RECORDS SUMMARY | 2024-06-15 16:06 | XMS_ITS | Clinical Summary ---
Author Organization [facility] Address [address] [place] [address] Care Team Providers Care Blanchard Grinder Operator Name Role Phone Mk Gomez CORY Primary Care Provider [phone] Source Comments PLEASE NOTE, if this patient is a minor, it may be UNLAWFUL to discuss sensitive information that is contained in these records (such as FAMILY PLANNING, MENTAL HEALTH or SUBSTANCE ABUSE) with the minor patient's parent or other person without the patient's specific authorization.[facility] Allergies No known active allergies Medications No known medications Active Problems Problem Noted Date Diagnosed Date Immune to measles/ serology 05/25/15 05/27/2015 Immune to mumps/serology 05/25/15 05/27/2015 Rubella immune/serology 05/25/15 05/27/2015 History of positive PPD 04/11/2015 IUD (intrauterine device) in place 04/11/2015 Immunizations Name Administration Dates Next Due MMR (MMR II/Priorix) 05/25/2015 TDAP 05/25/2015 Family History Medical History Relation Name Comments Cancer Father Prostate Relation Name Status Comments Brother Alive Father Alive Mother Alive Sister Social History Tobacco Use Types Packs/Day Years Used Date Smoking Tobacco: Never Smokeless Tobacco: Never Alcohol Use Standard Drinks/Week Comments No 0 (1 standard drink = 0.6 oz pur e alcohol) Social Connections Answer Date Recorded Social Connections and Isolation 0 12/12/2018 Financial Resource Strain Answer Date R ecorded Financial Resource Strain 0 2018 Stress Answer Date Recorded Stress 0 12/12/2018 Physical Activity Answer Date Recorded Physical Activity 0 12/12/2018 Food Insecurity Answer Date Recorded Food 0 12/12/2018 Transportation Needs Answer Date Record ed Transportation 0 12/12/2018 Housing Stability Answer Date Recorded Housing 0 12/12/2018 Safety and Environment Answer Date Girma rded Safety 0 12/12/2018 Utilities Answer Date Recorded Utilities 0 12/12/2018 Employment Answer Date Recorded Employment 0 12/12/2018 Comments No Sex and Gender Information Value Date Recorded Sex Assigned at Female 05/26/2017 2:26 PM PST Legal Sex Female 12:55 PM PST Gender Identity Female 05/26/2017 2:26 PM PST Sexual Orientation Straight 05/26/2017 2: 26 PM PST Last Filed Vital Signs Vital Sign Reading Time Taken Comments Blood Pressure 102/72 07/01/2017 1:12 PM EDT Pulse 67 07/01/2017 1:12 PM EDT Temperature 36.9 ??C (98.4 ??F) 07/01/2017 1:12 PM ED T Respiratory Rate 16 07/01/2017 1:12 PM EDT Oxygen Saturation - - Inhaled Oxygen Concentration - - Weight 57.5 kg (126 lb 11.2 oz) 07/01/2017 1:12 PM EDT Height 158.5 cm (5' 2.4 ) 04/11/2015 2:29 PM EST Body Mass Index 22.88 04/11/2015 2:29 PM EST Plan of Treatment Upcoming Encounters Date Type Department Care Team (Late st Contact Info) Description 08/17/2024 4:00 PM EDT Office Visit [facility] [address] [place] [phone] Andrew Ben [address] [place] [address] Insurance [employer] Member Subscriber Plan / Payer (Ef fective 2016-Present) Name:Esdras Almonte Relation to Subscriber:Self Name:Esdras Almonte Payer ID:[id number] Type:Indemnity Address: [address] [place] [address] [place] [facility] Care Teams Blanchard Grinder Operator Relationship Specialty Start Date End Date Mk Gomez FNP [address] [place] [phone] PCP - General Family Medicine, CUSTOMER 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
== END 2024-06-15 17:05 | disposition home or self-care (01) ==
LOC: HO.HMCFM 13:06
PROVIDERS: PCP Nurse Practitioner Family; Visit Provider Nurse Practitioner Family
DX: R21 Rash and other nonspecific skin eruption (principal); L65.9 Nonscarring hair loss, unspecified

== ENCOUNTER → 2024-06-15 13:06 | Outpatient (BNVA) | payer OTHER, SELFPAY | PROVIDERS: PCP Nurse Practitioner Family; Visit Provider Nurse Practitioner Family | DX: R21 Rash and other nonspecific skin eruption (principal); L65.9 Nonscarring hair loss, unspecified | CPT/HCPCS: 96127 ==

== ENCOUNTER 2024-07-08 08:29 | Outpatient (AMB) | payer OTHER, SELFPAY ==
--- NOTE | 2024-07-08 08:30 | MHC.PC.OV ---
Vital Signs 07/08/24 08:35 Height 5 ft 2 in Weight 137 lb 6 oz BMI 25.1 BP 110/66 Blood Pressure Location Rt brachial Position Sitting Respiration 12 Pulse 64 Pulse Source Pulse Oximeter Temp 98.2 F Temp Source Oral Pulse Oximetry (%) 100 Oxygen Delivery Method Room Air Intake Visit Reasons: CPE Intake Note: CPE. Patient complaining of numbing on feets and sore inside her mouth. Cutter Barrel Drum Required: No Allergies No Known Allergies Allergy (Verified 07/08/24 08:45) Medication List - Last Reconciled 07/08/24 by Nicole Euceda, SEAM SEWER- cholecalciferol (vitamin D3) 25 mcg PO DAILY ferrous fumarate 324 mg PO DAILY multivitamin 1 tab PO DAILY omega-3 fatty acids 1,000 mg PO DAILY Tobacco use date assessed: 07/08/24 Dental Screening Dental Screen Date: 07/08/24 Did you have a dental visit in the last 12 months?: No Did you have a dental problem in the last 6 months where you did not have access to dental care?: No Was dental information given to patient?: Patient has dentist HPI HPI Comments History of Present Illness Details 58-year-old female anemia H. 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 Would like exam, referral placed today DEXA - check baseline 2025 Specialists GI VETERINARY X RAY OPERATOR Counselor Malcom brandt, still waiting on appt for abd skin lesion/rash present for 2 years and hairloss Cards Dentist next appt 08/17/24 Here today for CPE & to review new concerns Cards: had negative high risk work up, FU PRN MSK: c/o painful toes, with walking one time, described as felt like toes were stuck w glass and bloody but there were not. Improved w/ changing shoes. Has not happened since. Has cold sores that come and go Lost voice twice this year and feels tired. This is new. Although did happen 10years ago. Wonder if related to hydration status. : 02/2024 Hysteroscopy D&C polypectomy was done intraoperative finding showed endometrial polyp, polypectomy done with D&C, the pathology showed the above findings. Last co testing in 08/11 was negative Recommend repeat BX q3mo x 1 year and start progesterone. she has hesitancy about progesterone. next appt 07/2024. Started to have hotflashes, post menopaussal taking magnesium [facility] magnesium she has not had low mag to date Surgery hx: None Family hx: Mom 84 chikungunya pulm Dad 88 bladder cancer Siblings 4 brothers, 3 sisters. sister 10 months old PNA, brothers [place] age 32 and 35 Living siblings: sister chrons & hyperthyroid, brother w/ gout and etoh, brother with heart disorder ? arrhythmia Review of Systems - General: Denies current malaise or fatigue. - Eye: Denies visual changes. - ENT: Reports intermittent loss of voice and occasional cold sores. - Cardiovascular: Denies chest pain or palpitations. - Respiratory: Denies breathlessness. - Gastrointestinal: Denies abdominal pain or changes in bowel habits. - Genitourinary: Denies current bleeding; postmenopausal. - Musculoskeletal: Reports recurrent numbness in the right foot. - Skin: Reports chronic rash. - Neurologic: Denies headaches or dizziness. - Psychiatric: Denies anxiety or depression. Exam: General: Well developed, well nourished, in no acute distress. Appears stated age. Head: Normocephalic, atraumatic. Eyes: Pupils are equal, round and reactive to light and accommodation. Conjunctivae are clear. Vision grossly normal. Ears: TMs clear AU, EACS WNL s/p lavage for cerumen in R EAC Nose: Patent, without discharge. Mouth: There are no ulcers or lesions noted. No inflammation, no post nasal drip, no plaques nor exudates. Neck: Supple, no adenopathy or thyromegaly. Lungs: Clear to auscultation bilaterally. No rales, rhonchi or wheeze noted. Good air flow in all kemp. Heart: Regular rate and rhythm. No murmurs, click, rubs or gallops are noted. Abdomen: Bowel sounds present in all quadrants. The abdomen is soft, nontender, with no masses or organomegaly noted. No hernias are noted. Musculoskeletal: Joints are nontender, without swelling, redness, or effusions. Range of motion is observed to be normal. Pulses: Peripheral pulses are equal and palpable bilaterally. Extremities: No clubbing, cyanosis nor edema is noted. Neurologic: Gait and station normal. Cranial Nerves 2-12 intact. Motor strength grossly symmetrical and intact. No sensory loss. Balance normal. Skin: No rashes, ulcers, or lesions noted. Turgor is good. Skin color is good. Hair and nails are without abnormalities. *See below; Right 4th toe nail subungal hematoma; calloused bilat great toes,heels pads of feet Psych: Normal eye contact, affect and mood appropriate, and normal interactions. Patient is alert and appropriate to context. Mid abdomen: Discussion Notes During the consultation, I reviewed the patient's ongoing issues and management strategies. I advised her to persistently contact the dermatology office for scheduling and to obtain a printed referral from the commercial front load driver for reassurance and procedural certainty. 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 Examination of her thyroid levels was planned due to her symptoms and the history of thyroid labs showing borderline results. Negative thyroid AB 2023. Considering her postmenopausal status and previous procedure, ongoing conversations with her OB-VETERINARY X RAY OPERATOR about hormone treatments were encouraged. I provided information about risk factors for oral and esophageal cancers and assured the patient of the dentist's role in early detection. Regarding her foot numbness and calluses, advising footwear adjustment and foot care strategies were discussed, along with an earwax removal procedure for her cerumen impaction. Assessment and Plan 1. Dermatology Consultation Follow-Up: Advised the patient to pursue the dermatology appointment scheduling actively by visiting their office armed with a printed referral, delayed for a year. 2. Numbness in Right Foot: Advised monitoring for recurrence; symptoms showed improvement with footwear adjustment. 3. Cold Sores and Oral Cancer Concerns: Emphasized dentist check-ups for early detection; risk reduction by no smoking/alcohol. 4. Loss of Voice: Suggested monitoring vocal strain and checking thyroid; possible connection to symptoms. 5. Postmenopausal Progesterone Treatment: Encouraged a thorough discussion with OB-VETERINARY X RAY OPERATOR weighing risks of progesterone use. 6. Hot Flashes: Planned evaluation through labs to assess thyroid and possible endocrine causes. 7. Chronic Calluses: Recommended regular foot care routine to manage calluses and prevent complications. Soak feet in h20 and coconut oil; file down callouses; monitor subungal hematoma R 4th toe. If worsening, consider Podiatry referral. 8. Eustachian Tube Dysfunction: Plan to clear right ear cerumen with flushing for symptom relief. Consent Patient was informed and verbally consented to the use of an ambient scribe for clinic note documentation during this visit. RTO 1 year CPE, sooner PRN An additional 30 minutes was spent addressing the problem(s) noted at todays visit. This includes time spent before the visit reviewing the chart, time spent during the visit, and time spent after the visit on documentation reviewing laboratory results, diagnostic imaging, medications, performing a medically necessary evaluation, counseling on diagnoses, care coordination, ordering appropriate tests, ordering appropriate medications, review of tests performed by other providers, reporting test results with the patient, communication with other healthcare providers. [facility] Medical History (Updated 07/08/24 @ 10:04 by CORY Cesar-LUIS MANUEL) Anemia Ascending aorta dilatation Family history of cardiac disorder Gastric ulcer Postmenopausal bleeding Rheumatic fever Subclinical hypothyroidism Surgical History (Updated 07/07/24 @ 08:17 by CORY Cesar-LUIS MANUEL) H/O colonoscopy (~2023) History of esophagogastroduodenoscopy (EGD) (~2023) Family History Father Prostate cancer Bladder cancer Mother HTN (hypertension) Brother Myocardial infarction Social History Household Members Other:: daughters Housing: House Alcohol intake: current Alcohol intake frequency: holidays/special occasions only Patient Tobacco Use Status: Never used Tobacco e-Cigarette/Vaping Use: Never Used Current occupational status: employed 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 1. Little interest or pleasure in doing things: not at all 2. Feeling down, depressed, or hopeless: not at all 3. Trouble falling or staying asleep, or sleeping too much: not at all 4. Feeling tired or having little energy: not at all 5. Poor appetite or overeating: not at all 6. Feeling bad about yourself - or that you are a failure or have let yourself or your family down: not at all 7. Trouble concentrating on things, such as reading the newspaper or watching television: not at all 8. Moving or speaking so slowly that other people could have noticed. Or the opposite - being so fidgety or restless that you have been moving around a lot more than usual: not at all 9. Thoughts that you would be better off or of hurting yourself in some way: not at all Total score: 0 Depression Screening Interpretation: Negative Depression Screening Done: Yes 72938 - PHQ-9 Billing: Yes Source: Developed by Drs. Farhan Moya, Lanny Whitney, Isael Edmond and colleagues, with an educational octavio from [employer]. Thrive Questionnaire Date Thrive assessed: 07/08/24 I am a: Patient What is your living situation today?: I have a steady place to live Within the past 12 months, did the food you bought not last and you didn't have the money to get more?: Never true Within the past 12 months, did you worry whether your food would run out before you got money to buy more?: Never true Do you have trouble paying for medicines?: No Do you have trouble getting transportation to medical appointments?: No Do you have trouble paying your heating and electricity bill?: Yes Do you have trouble taking care of your child, family member or friend?: No Do you have trouble with day-to-day activities such as bathing, preparing meals, shopping, managing finances, etc.?: No Are you currently unemployed and looking for a job?: No Are you interested in more education?: No Please select the resources that you would like help with: None Currently or been in a relationship where the following occur: I choose not to answer THRIVE Score: 1 AUDIT C Alcohol Use Questionnaire (AUDIT-C) 1. How often do you have a drink containing alcohol?: Monthly or less 2. How many drinks containing alcohol do you have on a typical day when you are drinking?: 1 or 2 3. How often do you have six or more drinks on one occasion?: Never Total Score: 1 Score Reviewed/Action Taken: Yes MELINDA-7 AMB Questionnaire MELINDA-7 Date MELINDA - 7 assessed: 07/08/24 Feeling nervous, anxious, or on edge: 0 = Not at all Not being able to stop or control worryin = Not at all Worrying too much about different things: 1 = Several days Trouble relaxin = Not at all Being so restless that it is hard to sit still: 0 = Not at all Becoming easily annoyed or irritable: 0 = Not at all Feeling afraid as if something awful might happen: 0 = Not at all Total MELINDA-7 score (0-4 normal; 5-9 mild; 10-14 moderate; 15-21 severe): 1 Source: Developed by Drs. Farhan Moya, Lanny Whitney, Isael Edmond and colleagues, with an educational octavio from [employer]. MELINDA-7 Assessment Billing MELINDA-7 Assessment Tool: MELINDA-7 Assessment 80427 Physical exam (Primary Care) Vital Signs: Last Vital Signs Temp 98.2 F 07/08/24 08:35 Pulse 64 07/08/24 08:35 Resp 12 07/08/24 08:35 BP 110/66 07/08/24 08:35 Pulse Ox 100 07/08/24 08:35 Oxygen Delivery Method Room Air 07/08/24 08:35 BMI result Body Mass Index 25.1 Tobacco/Smoking Status: Tobacco use Status Tobacco use date assessed 07/08/24 07/08/24 08:37 Patient Tobacco Use Status Never used Tobacco 07/08/24 08:37 e-Cigarette/Vaping Use Never Used 07/08/24 08:37 PHQ-9: PHQ-9 Score PHQ-9: Total score 0 07/08/24 08:47 Depression Screening Interpretation: Negative Thrive Assessment: Date of Thrive Assessment Date Thrive assessed 07/08/24 07/08/24 08:37 Currently or been in a relationship where the following occur: I choose not to answer Office Procedures Cerumen Removal From which ear canal was the cerumen removed: right Removal: irrigation Notes: patient tolerated procedure well, no complications and ear canal clear [id number] Irrigation/Lavage Coding Level of Care Code Est Pt Level 4 (25751) Est Pt Prev Care 40-64y(76928) Diagnoses Encounter for general adult medical examination with abnormal findings Z00.01 Abnormal EKG R94.31 Family history of premature CAD Z82.49 FHx: early [place] Z82.49 Hair loss L65.9 Moderate mixed hyperlipidemia not requiring statin therapy E78.2 Hyperlipidemia type: moderate mixed hyperlipidemia not requiring statin therapy Subclinical hypothyroidism E03.8 Iron deficiency anemia due to chronic blood loss D50.0 Anemia type: iron deficiency Iron deficiency anemia type: chronic blood loss Laboratory exam ordered as part of routine general medical examination Z00.00 Hot flash not due to menopause R23.2 Foot callus L84 Subungual hematoma of toe of right foot, initial encounter S90.221A Encounter type: initial encounter Cold sore B00.1 Skin rash R21 Right ear impacted cerumen H61.21 CPT Codes Office Procedure - CPT: 48890-Goz Irrigation/Lavage ([id number]) Additional Codes MELINDA-7 Assessment Billing - MELINDA-7 Assessment Tool: MELINDA-7 Assessment 73753 ([id number]) PHQ-9 - 51385 - PHQ-9 Billing: Yes ([id number]) Assessment & Plan Assessment & Plan (1) Encounter for general adult medical examination with abnormal findings: Code(s): Z00.01 - Encounter for general adult medical examination with abnormal findings (2) Abnormal EKG: Onset Date: ~2023 Comment: EKG with inferior/anterolateral downsloping STs with T inversions. Echocardiogram with LVEF of 55-60%. No significant valvular findings and otherwise unremarkable. Coronary CTA shows no angiographic evidence of coronary disease. Hence suspect EKG findings are just nonspecific. Code(s): R94.31 - Abnormal electrocardiogram [ECG] [EKG] Category: Medical (3) Family history of premature CAD: Code(s): Z82.49 - Family history of ischemic heart disease and other diseases of the circulatory system Category: Medical (4) FHx: early [place]: Comment: brothers age 32 and 35 from [place] Code(s): Z82.49 - Family history of ischemic heart disease and other diseases of the circulatory system Category: Medical (5) Hair loss: Code(s): L65.9 - Nonscarring hair loss, unspecified Category: Medical (6) Hyperlipidemia: Code(s): E78.5 - Hyperlipidemia, unspecified Category: Medical Qualifiers: Hyperlipidemia type: moderate mixed hyperlipidemia not requiring statin therapy Qualified Code(s): E78.2 - Mixed hyperlipidemia (7) Subclinical hypothyroidism: Comment: Reports this was noted in 2018. 06/2023 TSH greater than 6, normal T4, negative thyroid ab Code(s): E03.8 - Other specified hypothyroidism Category: Medical (8) Anemia: Comment: was on iron in the past. Reports she donates blood routinely. 06/2023 CBC and iron studies within normal limits Code(s): D64.9 - Anemia, unspecified Category: Medical Qualifiers: Anemia type: iron deficiency Iron deficiency anemia type: chronic blood loss Qualified Code(s): D50.0 - Iron deficiency anemia secondary to blood loss (chronic) (9) Laboratory exam ordered as part of routine general medical examination: Code(s): Z00.00 - Encounter for general adult medical examination without abnormal findings Category: Medical (10) Hot flash not due to menopause: Code(s): R23.2 - Flushing Category: Medical (11) Foot callus: Code(s): L84 - Corns and callosities Category: Medical (12) Subungual hematoma of toe of right foot: Code(s): S90.221A - Contusion of right lesser toe(s) with damage to nail, initial encounter Category: Medical Qualifiers: Encounter type: initial encounter Qualified Code(s): S90.221A - Contusion of right lesser toe(s) with damage to nail, initial encounter (13) Cold sore: Code(s): B00.1 - Herpesviral vesicular dermatitis Category: Medical (14) Skin rash: Code(s): R21 - Rash and other nonspecific skin eruption Category: Medical (15) Right ear impacted cerumen: Code(s): H61.21 - Impacted cerumen, right ear Category: Medical Plan . Orders: Orders Complete Blood Count no Diff Today R23.2 - Flushing, Z00.00 - Encounter for general adult medical examination without abnormal findings Vitamin B12 and Folate Today R23.2 - [place], Z00.00 - Encounter for general adult medical examination without abnormal findings Vitamin D 25-OH Total Today R23.2 - [place], Z00.00 - Encounter for general adult medical examination without abnormal findings Comprehensive Met. Panel Today R23.2 - [place], Z00.00 - Encounter for general adult medical examination without abnormal findings Hemoglobin A1c Today R23.2 - [place], Z00.00 - Encounter for general adult medical examination without abnormal findings Lipid Panel Today R23.2 - [place], Z00.00 - Encounter for general adult medical examination without abnormal findings Microalbumin, Random (w Creat) Today R23.2 - [place], Z00.00 - Encounter for general adult medical examination without abnormal findings TSH reflex Free T4 Today R23.2 - [place], Z00.00 - Encounter for general adult medical examination without abnormal findings Ferritin Today R23.2 - [place], Z00.00 - Encounter for general adult medical examination without abnormal findings Magnesium Today R23.2 - [place] Patient Instructions: Health screenings for women You should visit your health care provider from time to time, even if you are healthy. The purpose of these visits is to: Screen for medical issues Assess your risk for future medical problems Encourage a healthy lifestyle Update vaccinations and other preventive care services Help you get to know your provider in case of an illness Information Even if you feel fine, you should still see your provider for regular checkups. These visits can help you avoid problems in the future. For example, the only way to find out if you have high blood pressure is to have it checked regularly. High blood sugar and high cholesterol levels also may not have any symptoms in the early stages. A simple blood test can check for these conditions. There are specific times when you should see your provider or receive specific health screenings. The [place] Preventive Services Task Force publishes a list of recommended screenings. Below are screening guidelines for women ages 18 to 39. BLOOD PRESSURE SCREENING Your blood pressure should be checked at least once every 3 to 5 years if: Your blood pressure is in the normal range (top number less than 120 mm Hg and bottom number less than 80 mm Hg) You don't have risk factors for high blood pressure Ask your provider if you need your blood pressure checked more often if: The top number is 120 to 129 mm Hg or the bottom number is 70 to 79 mm Hg You have diabetes, heart disease, kidney problems, are overweight, or have certain other health conditions You have a first-degree relative with high blood pressure You are Black You had high blood pressure during a If the top number is 130 mm Hg or greater or the bottom number is 80 mm Hg or greater, this is considered stage 1 hypertension. Schedule an appointment with your provider to learn how you can reduce your blood pressure. Watch for blood pressure screenings in your area. Ask your provider if you can stop in to have your blood pressure checked. BREAST CANCER SCREENING Experts do not agree about the benefits of breast self-exams in finding breast cancer or saving lives. Talk to your provider about what is best for you. A screening mammogram is not recommended for most women under age 40. Your provider may discuss and recommend mammograms, MRI scans, or ultrasounds if you have an increased risk for breast cancer, such as: A mother or sister who had breast cancer at a young age (most often starting screening earlier than the age the close relative was diagnosed) You carry a high-risk genetic marker CERVICAL CANCER SCREENING Cervical cancer screening should start at age 21 years unless your provider advises otherwise. After the first test: Women ages 21 through 29 should have a Pap test every 3 years. Exoprts do not agree on whether HPV testing is recommended for this age group. Women ages 30 through 65 should be screened with either a Pap test every 3 years or the HPV test every 5 years or both tests every 5 years (called cotesting ). Women who have been treated for precancer (cervical dysplasia) should continue to have Pap tests for 20 years after treatment or until age 65, whichever is longer. If you have had your uterus and cervix removed (total hysterectomy), and you have not been diagnosed with cervical cancer or precancer (high grade cervical neoplasia), you do not need cervical cancer screening. CHOLESTEROL SCREENING Cholesterol screening should begin at: Age 45 for women with no known risk factors for coronary heart disease Age 20 for women with known risk factors for coronary heart disease Repeat cholesterol screening should take place: Every 5 years for women with normal cholesterol levels More often if changes occur in lifestyle (including weight gain and diet) More often if you have diabetes, heart disease, kidney problems, or certain other conditions DIABETES SCREENING You should be screened for diabetes starting at age 35 and then repeated every 3 years if you have no risk factors for diabetes. Screening may need to start earlier and be repeated more often if you have other risk factors for diabetes, such as: You have a first degree relative with diabetes. You are overweight or have obesity. You have high blood pressure, prediabetes, or a history of heart disease. Screening for diabetes should be done if you are planning to become and you are overweight and have other risk factors such as high blood pressure. DENTAL EXAM Go to the dentist once or twice every year for an exam and cleaning. Your dentist will evaluate if you need more frequent visits. EYE EXAM Have an eye exam every 5 to 10 years before age 40. If you have vision problems, have an eye exam every 2 years or more often if recommended by your provider. You should have an eye exam that includes an examination of your retina (back of your eye) at least every year if you have diabetes. IMMUNIZATIONS Commonly needed vaccines include: Flu shot: get one every year. COVID-19 vaccine: ask your provider what is best for you. Tetanus-diphtheria and acellular pertussis (Tdap) vaccine: have one at or after age 19 as one of your tetanus-diphtheria vaccines if you did not receive it as an adolescent. Tetanus-diphtheria: have a booster (or Tdap) every 10 years. Varicella vaccine: receive 2 doses if you never had chickenpox or the varicella vaccine. Hepatitis B vaccine: receive 2, 3, or 4 doses, depending on your exact circumstances. Measles, mumps, and rubella (MMR) vaccine: receive 1 to 2 doses if you are not already immune to MMR. Your provider can tell you if you are immune. Ask your provider about the human papillomavirus (HPV) vaccine if: You have not received the HPV vaccine in the past You have not completed the full vaccine series (you should catch up on this shot) Ask your provider if you should receive other immunizations if you have certain health problems that increase your risk for some diseases such as pneumonia. INFECTIOUS DISEASE SCREENING Women who are sexually active should be screened for chlamydia and gonorrhea up until age 25. Women 25 years and older should be screened for chlamydia and gonorrhea if at high risk. Screening for hepatitis C: All adults ages 18 to 79 should get a one-time test for hepatitis C. people should be screened at every . Screening for human immunodeficiency virus (HIV): All people ages 15 to 65 should get a one-time test for HIV. Depending on your lifestyle and medical history, you may also need to be screened for infections such as syphilis and HIV, as well as other infections. PHYSICAL EXAM All adults should visit their provider from time to time, even if they are healthy. The purpose of these visits is to: Screen for disease Assess your risk of future medical problems Encourage a healthy lifestyle Update your vaccinations and other preventive care services Maintain a relationship with a provider in case of an illness Your height, weight, and BMI should be checked at every exam. During your exam, your provider may ask you about: Depression and anxiety Diet and exercise Alcohol and tobacco use Safety issues, such as using seat belts, smoke detectors, and intimate partner violence Your medicines and risk for interactions SKIN SELF-EXAM Your provider may check your skin for signs of skin cancer, especially if you're at high risk, such as if you: Have had skin cancer before Have close relatives with skin cancer Have a weakened immune system OTHER SCREENING Talk with your provider about colon cancer screening if you have a strong family history of colon cancer or polyps, or if you have had inflammatory bowel disease or polyps yourself. Routine bone density screening of women under 40 is not recommended.
[2024-07-08 08:35] VITALS: BP 110/66; PULSE 64; RESP 12; TEMP 36.8; O2SAT 100; BMI 25.1
== END 2024-07-08 09:22 | disposition home or self-care (01) ==
LOC: HO.HMCFM 08:29
PROVIDERS: PCP Nurse Practitioner Family; Visit Provider Nurse Practitioner Family
DX: Z00.01 Encounter for general adult medical examination with abnormal findings (principal); R94.31 Abnormal electrocardiogram [ECG] [EKG]; Z82.49 Family history of ischemic heart disease and other diseases of the circulatory system; L65.9 Nonscarring hair loss, unspecified; E78.2 Mixed hyperlipidemia; E03.8 Other specified hypothyroidism; H61.21 Impacted cerumen, right ear; D50.0 Iron deficiency anemia secondary to blood loss (chronic); Z00.00 Encounter for general adult medical examination without abnormal findings; R23.2 Flushing; L84 Corns and callosities; S90.221A Contusion of right lesser toe(s) with damage to nail, initial encounter

== ENCOUNTER → 2024-07-08 08:29 | Outpatient (BNVA) | payer OTHER, SELFPAY | PROVIDERS: PCP Nurse Practitioner Family; Visit Provider Nurse Practitioner Family | DX: Z00.01 Encounter for general adult medical examination with abnormal findings (principal); H61.21 Impacted cerumen, right ear; R94.31 Abnormal electrocardiogram [ECG] [EKG]; L65.9 Nonscarring hair loss, unspecified; E78.2 Mixed hyperlipidemia; E03.8 Other specified hypothyroidism; D50.0 Iron deficiency anemia secondary to blood loss (chronic); R23.2 Flushing; L84 Corns and callosities; B00.1 Herpesviral vesicular dermatitis; R21 Rash and other nonspecific skin eruption; S90.221A Contusion of right lesser toe(s) with damage to nail, initial encounter; Z82.49 Family history of ischemic heart disease and other diseases of the circulatory system; X58.XXXA Exposure to other specified factors, initial encounter; Y93.9 Activity, unspecified; Y92.9 Unspecified place or not applicable; Y99.9 Unspecified external cause status | CPT/HCPCS: 69209; 96127 ==

== ENCOUNTER 2024-07-08 10:01 | Outpatient (REF) | payer OTHER, SELFPAY ==
[2024-07-08 11:35] LABS: Hematocrit 37.4 % (37.0-47.0); Mean Corpuscular HGB Conc 34.8 g/dl (31.0-35.0); Mean Corpuscular Hemoglobin 31.4 pg (27.0-33.0); Mean Corpuscular Volume 90.3 fL (80.0-98.0); Mean Platelet Volume 10.4 fL (9.4-12.3); Platelet Count 222 X10*3/uL (160-400); Red Blood Count 4.14 X10*6/uL (4.20-5.50); Red Cell Distribution Width 12.7 % (11.0-16.0); White Blood Count 7.1 X10*3/uL (4.8-10.8)
[2024-07-08 11:36] LABS: Estimated Average Glucose 97 mg/dL
[2024-07-08 11:58] LABS: Alanine Aminotransferase 27 U/L (0-31); Albumin Level 4.3 g/dL (3.5-5.0); Alkaline Phosphatase 70 U/L (39-117); Anion Gap 11 (12-20); Aspartate Amino Transferase 32 U/L (5-31); Bilirubin Total 0.6 mg/dL (0.0-1.0); Blood Urea Nitrogen 9 mg/dL (9-16); Calcium 9.6 mg/dL (8.4-10.2); Carbon Dioxide 29 mmol/L (22-29); Chloride 104 mmol/L (96-108); Cholesterol 180 mg/dL (<200); Estimated Glomerular Filt Rate > 60; Ferritin 66 ng/mL (10-250); Glucose Random 96 mg/dL (60-115); HDL Cholesterol 44 mg/dL (>40); LDL Cholesterol Calculated 106 mg/dL (<100); Magnesium 1.8 mg/dL (1.6-2.6); Potassium 4.1 mmol/L (3.3-5.1); Sodium 140 mmol/L (135-145); TSH reflex Free T4 4.47 uIU/mL (0.32-4.0); Total Protein 7.7 g/dL (6.5-8.0); Triglycerides 152 mg/dL (<150); Vitamin D 25-OH Total 38.1 ng/mL (>30)
[2024-07-08 12:42] LABS: Folate 16.8 ng/mL (> or = 4.0); Vitamin B12 553 pg/mL (200-900)
[2024-07-08 12:54] LABS: Free T4 (Free Thyroxine) 1.07 ng/dL (0.71-1.85)
[2024-07-08 14:52] LABS: Creatinine Urine 17.89 mg/dL; Microalbumin Urine < 5.0 mg/L
== END 2024-07-08 10:02 | disposition home or self-care (01) ==
LOC: HO.WFDLDS 10:01
PROVIDERS: Visit Provider Nurse Practitioner Family
DX: Z00.00 Encounter for general adult medical examination without abnormal findings (principal); R23.2 Flushing; Z13.1 Encounter for screening for diabetes mellitus; D64.9 Anemia, unspecified; E03.8 Other specified hypothyroidism; E78.2 Mixed hyperlipidemia
CPT/HCPCS: 36415; 80053; 80061; 82306; 82570; 82607; 82728; 82746; 83036; 83735; 84439; 84443; 85027

== ENCOUNTER 2024-07-21 07:34 | Outpatient (REF) | payer OTHER, SELFPAY ==
--- OUTSIDE RECORDS SUMMARY | 2024-07-21 08:22 | XMS_ITS | Clinical Summary ---
Author Organization [facility] Address [address] [place] [address] Care Team Providers Care Program Evaluation Consultant Name Role Phone Mk Gomez CORY Primary Care Provider [phone] Source Comments PLEASE NOTE, if this patient [...] Description 08/17/2024 4:00 PM EDT Office Visit [facility] Dental [address] [place] [phone] Ben Morales [address] [place] [address] Health Maintenance Due Date Last Done Comments [...] Cancer Screening (Mammogram) 07/10/2018 07/10/2017 (Managed by [facility] de Provider) Diabetes Screening 05/26/2020 05/26/2017, 1 06/13/2014, 04/12/2015 Cervical Cancer Screening 07/01/2020 Pap Smear 07/01/2020 07/01/2017, 06/15/2015 Lipid Screening 05/26/2022 05/26/2017, 04/12/2015 [id number] ( season) 2023 Imm-Influenza (#1) 2023 Alcohol [...] EST) CHOLESTEROL 147 0 - 200 mg/dL [facility] TRIGLYCERIDES 224(H) 0 - 150 mg/dL [facility] HDL CHOLESTEROL 46 >40 mg/dL [facility] LDL CALCULATED 57 0 - 100 mg/dL [facility] TC-HDLC RATIO 3.2 0 - 4.4 mg/dL [facility] Blood specimen (specimen) Blood / Unknown 05/26/2017 4:37 PM EST 05/26/2017 6:20 PM EST Narrative [facility] - 05/26/2017 7:49 PM EST [facility] [address] [place] [address] PT ID [id number] ORD# [id number] Mk Chloegriselda RAY LAB - BLOOD DRAW Edited Result - Final [facility] [address] [place] [address], * COMPRE METAB PANEL (05/26/2017 4:37 PM EST) GLUCOSE 88 70 - 100 mg/dL [facility] Comment:Reference range appl icable to fasting specimens only BUN 8 5 - 25 mg/dL [facility] CREAT 0.69 0.5 - 1.1 mg/dL [facility] GLOMERULAR FILTRATION RATE > 60 [facility] Comment: If patient is -Tanzanian, multiply result by 1.21 Chronic Kidney Disease: < 60 ml/min/1.73 square meters Kidney Failure: < 15 ml/min/1.73 square meters SODIUM 141 133 - 145 mmol/L [facility] POTASSIUM 3.9 3.5 - 5.5 mmol/L [facility] CHLORIDE 103 96 - 110 mmol/L [facility] CO2 30 21 - 32 mmol/L [facility] ANION GAP 8 3 - 11 [facility] CALCIUM 8.8 8.5 - 10.5 mg/dL [facility] TOTAL PROTEIN 7.3 6.0 - 8.0 G/dL [facility] ALBUMIN 3.7 3.2 - 5.0 G/dL [facility] BILI, TOTAL 0.3 0.0 - 1.4 mg/dL [facility] SGOT 29 10 - 42 U/L [facility] SGPT 26 10 - 60 U/L [facility] ALK PHOS 64 42 - 121 U/L [facility] Blood specimen (specimen) Blood / Unknown 05/26/2017 4:37 PM EST 05/26/2017 6:20 PM EST Narrative [facility] - 05/26/2017 7:49 PM EST [facility] [address] [place] [address] PT ID [id number] ORD# [id number] Mk Patricia Y[facility] P[facility]OT [facility] - BLOOD DRAW Edited Result - Final [address] [address], * (ABNORMAL) HEPATITIS A,B,C PANEL (07/27/2015 1:36 PM EDT) HEPATITIS B SURFACE ANTIBODY NEGATIVE NEGATIVE [facility] HEPATITIS B SURFACE ANTIGEN NEGATIVE NEGATIVE [facility] HEPATITIS C VIRUS DIAGNOSTIC NEGATIVE NEGATIVE [facility] HEPATITIS A ANTIBODY TOTAL POSITIVE(A) NEGATIVE [facility] HEPATITIS B CORE ANTIBODY NEGATIVE NEGATIVE [facility] Blood specimen (specimen) Blood / Unknown 07/27/2015 1:36 PM EDT 07/27/2015 2:47 PM EDT [facility] - 07/27/2015 7:55 PM EDT [facility] [address] [place] [address] PT ID [id number] ORD# [id number] Mk GOULDP LAB - BLOOD DRAW Edited Result - Final [address] [address], from Last 3 Months or Most Recently Relevant to Health Maintenance Insurance HEALTH SAFETY NET [facility] Member Subscriber Plan / Payer (Ef fective 2016-Present) Name:Esdras Almonte Relation to Subscriber:Self Name:Esdras Almonte Payer ID:[id number] Type:Indemnity Address: [facility] [address] [place] [address] [place] MEDICAID DENTAL [facility] Care Teams Program Evaluation Consultant Relationship Specialty Start Date End Date Mk Gomez FNP [address] [place] [address] PCP - General Family Medicine, CASINO SHIFT MANAGER 04/10/15
== END 2024-07-21 07:35 | disposition home or self-care (01) ==
LOC: HO.LNP 07:34
PROVIDERS: PCP Nurse Practitioner Family; Visit Provider Obstetrics & Gynecology
DX: N95.0 Postmenopausal bleeding (principal)
CPT/HCPCS: 58100; 88305

== ENCOUNTER 2024-07-21 07:34 | Outpatient (AMB) | payer OTHER, SELFPAY ==
--- OUTSIDE RECORDS SUMMARY | 2024-07-21 07:37 | XMS_ITS | Clinical Summary ---
Author Organization [facility] Address [address] [place] [address] Care Team Providers Care Bottle Booth Attendant Name Role Phone Mk Gomez CORY Primary Care Provider [phone] Source Comments PLEASE NOTE, if this patient [...] IUD (intrauterine device) in place 04/11/2015 Immunizations Immunization Administration Dates Next Due MMR (MMR II/Priorix) [...] Description 08/17/2024 4:00 PM EDT Office Visit [facility] [address] [place] [phone] Ben Morales [address] [place] [address] Health Maintenance Due Date Last Done Comments Anxiety Screening 1966 HPV Screening 1966 Pap + HPV 1966 Tobacco Screening 1966 HIV Screening 1981 Imm-Hepatitis B (1 of 3 - 19 + 3-dose series) 1985 CT Colonography 11/05/2011 Colonoscopy 11/05/2011 Colorectal Cancer Screening 11/05/2011 FIT/gFOBT 11/05/2011 Fecal DNA 11/05/2011 Flexible Sigmoidoscopy 11/05/2011 Imm-Zoster, Recombinant (1 of 2) 2016 Annual Preventive Care Visit 07/01/2018, 05/26/2017, 06/15/2015, Additional history exists Hypertension Screening (#1) 07/01/2018 Breast Cancer Screening (Mammogram) 07/10/2018 07/10/2017 (Managed by [facility] de Provider) Diabetes Screening 05/26/2020 05/26/2017, 1 06/13/2014, 04/12/2015 Cervical Cancer Screening 07/01/2020 Pap Smear 07/01/2020 07/01/2017, 06/15/2015 Lipid Screening 05/26/2022 05/26/2017, 04/12/2015 [id number] ( season) 2023 Imm-Influenza (#1) 2023 Alcohol and Drug Screen 04/20/2024 04/11/2015, 04/11 Depression Annual Screen 04/20/2024 04/11/2015 Imm-DTaP/Tdap/Td (2 - Td or Tdap) 05/25/2025 016 Hepatitis C Screening Completed 07/27/2015 Cervical Ablation/Cold-Knife Conization Discontinued Cervical Cryotherapy Discontinued Colposcopy Discontinued Endometrial Biopsy Discontinued Excision/Leep Discontinued HPV Genotyping Discontinued Vaginal Pap Discontinued Vulvoscopy Discontinued Procedures Procedure Name Priority Date/Time Associated Diagnosis Comments COMPREHENSIVE METABOLIC PANEL Routine 05/26/2017 4:37 PM EST Routine general medical examination at a health care facility LIPID PANEL Routine 05/26/2017 4:37 PM EST Routine general medical examination at a health care facility HEPATITIS A,B,C PANEL Routine 07/27/2015 1:36 PM EDT Routine general medical examination at a health care facility from Last 3 Months or Most Recently Relevant to Health Maintenance Results * (ABNORMAL) LIPID PANEL (05/26/2017 4:37 PM EST) CHOLESTEROL 147 0 - 200 mg/dL [facility] TRIGLYCERIDES 224(H) 0 - 150 mg/dL [facility] HDL CHOLESTEROL 46 >40 mg/dL [facility] LDL CALCULATED 57 0 - 100 mg/dL [facility] TC-HDLC RATIO 3.2 0 - 4.4 mg/dL [facility] Blood specimen (specimen) Blood / Unknown 05/26/2017 4:37 PM EST 05/26/2017 6:20 PM EST Narrative [facility] - 05/26/2017 7:49 PM EST [facility] [address] [place] [address] PT ID [id number] ORD# [id number] Mk Chloegriselda RAY LAB - BLOOD DRAW Edited Result - Final [facility] [address] [place] [address], * COMPRE METAB PANEL (05/26/2017 4:37 PM EST) GLUCOSE 88 70 - 100 mg/dL [facility] Comment:Reference range appl icable to fasting specimens only BUN 8 5 - 25 mg/dL [facility] CREAT 0.69 0.5 - 1.1 mg/dL [facility] GLOMERULAR FILTRATION RATE > 60 [facility] Comment: If patient is -Djiboutian, multiply result by 1.21 Chronic Kidney Disease: < 60 ml/min/1.73 square meters Kidney Failure: < 15 ml/min/1.73 square meters SODIUM 141 133 - 145 mmol/L [facility] POTASSIUM 3.9 3.5 - 5.5 mmol/L [facility] CHLORIDE 103 96 - 110 mmol/L [facility] CO2 30 21 - 32 mmol/L [facility] ANION GAP 8 3 - 11 [facility] CALCIUM 8.8 8.5 - 10.5 mg/dL [facility] TOTAL PROTEIN 7.3 6.0 - 8.0 G/dL [facility] ALBUMIN 3.7 3.2 - 5.0 G/dL [facility] BILI, TOTAL 0.3 0.0 - 1.4 mg/dL [facility] SGOT 29 10 - 42 U/L [facility] SGPT 26 10 - 60 U/L [facility] ALK PHOS 64 42 - 121 U/L [facility] Blood specimen (specimen) Blood / Unknown 05/26/2017 4:37 PM EST 05/26/2017 6:20 PM EST Narrative [facility] - 05/26/2017 7:49 PM EST [facility] [address] [place] [address] PT ID [id number] ORD# [id number] Mk Patricia [facility] - BLOOD DRAW Edited Result - Final [address] [address], * (ABNORMAL) HEPATITIS A,B,C PANEL (07/27/2015 1:36 PM EDT) HEPATITIS B SURFACE ANTIBODY NEGATIVE NEGATIVE [facility] HEPATITIS B SURFACE ANTIGEN NEGATIVE NEGATIVE [facility] HEPATITIS C VIRUS DIAGNOSTIC NEGATIVE NEGATIVE [facility] HEPATITIS A ANTIBODY TOTAL POSITIVE(A) NEGATIVE [facility] HEPATITIS B CORE ANTIBODY NEGATIVE NEGATIVE [facility] Blood specimen (specimen) Blood / Unknown 07/27/2015 1:36 PM EDT 07/27/2015 2:[address] [facility] - 07/27/2015 7:55 PM EDT [facility] [address] [place] [address] PT ID [id number] ORD# [id number] Mk GOULDP LAB - BLOOD DRAW Edited Result - Final [address] [address], from Last 3 Months or Most Recently Relevant to Health Maintenance Insurance HEALTH SAFETY [facility] Member Subscriber Plan / Payer (Ef fective 2016-Present) Name:Esdras Almonte Relation to Subscriber:Self Name:Esdras Almonte Payer ID:[id number] Type:Indemnity Address: [facility] [address] [place] [address] [place] MED[place] DENT[place] [facility] Care Teams Bottle Booth Attendant Relationship Specialty Start Date End Date Mk Gomez FNP [address] [place] [address] PCP - General Family Medicine, MANAGER OF APPLICATION DEVELOPMENT 04/10/15
[2024-07-21 07:38] VITALS: BP 102/60; BMI 25.1
--- NOTE | 2024-07-21 07:38 | MHC.OFFVIS ---
Vital Signs 07/21/24 07:38 Height 5 ft 2 in Weight 137 lb BMI 25.1 BP 102/60 Intake Visit Reasons: EMB/ Mirena insertion Buyer Agent Required: No Information Interpreted: non-clinical & clinical Weather Analyst: Weather Analyst Present (Apple Mobley OLY) Accompanied by: Self / Same As Patient Allergies No Known Allergies Allergy (Verified 07/21/24 07:42) Post menopausal: No HPI Comments Details: Presenting for repeat EMB, last EMB in 03/13 showed weakly proliferative, options of treatment were discussed with the patient including p.o. progesterone versus Mirena IUD, the patient decided to proceed with Mirena IUD but presented with bilateral breast pain, Mirena IUD insertion was put on hold pending the workup, diagnostic mammogram breast ultrasound were done which showed BI-RADS 1. [facility] Medical History Ascending aorta dilatation Family history of cardiac disorder Rheumatic fever Subclinical hypothyroidism Postmenopausal bleeding Gastric ulcer Anemia Surgical History History of esophagogastroduodenoscopy (EGD) (~2023) H/O colonoscopy (~2023) Family History Father Prostate cancer Bladder cancer Mother HTN (hypertension) Brother Myocardial infarction Social History Household Members Other:: daughters Housing: House Alcohol intake: current Alcohol intake frequency: holidays/special occasions only Patient Tobacco Use Status: Never used Tobacco e-Cigarette/Vaping Use: Never Used Current occupational status: employed 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 Sexual orientation: Straight/Heterosexual Gender identity: Female Cognitive needs: No Hearing needs: No Vision needs: No Review of Systems Const All systems reviewed & are unremarkable except as noted in HPI and below Reports as per HPI and Reports no additional complaints GI Reports no additional complaints Reports no additional complaints Office Procedures Endometrial Biopsy Details: The patient was counseled regarding the indication and benefits of endometrial sampling to rule out endometrial pathology including not limited to endometrial hyperplasia or endometrial cancer and others; The alternatives (Either do nothing vs. hysteroscopy D&C) & the risks were discussed with the patient including but not limited: pain, uterine perforation, bleeding, infection, possible injury to bladder, bowel, ureter, possible need for blood transfusion with all its possible risks. The patient verbalized understanding all questions answered and signed consent. The patient was placed into the dorsal lithotomy position; a speculum was inserted in the vagina. Using aseptic technique for the procedure, the cervix was cleansed with Betadine. The anterior lip of the cervix was grasped with a single tooth tenaculum. The uterus was sounded to 7 cm with a 4 mm Pipelle was used. Tissues samples were obtained and placed in formalin, in a patient labeled container and sent to the pathology department. At the end of the procedure, there was minimal bleeding noted The patient tolerated the procedure well and was discharged in good condition with the following instructions: Nothing in the vagina until the bleeding stops. No sex until the bleeding stops, to call if any of the following occurs: fever (>100.4), flu-like symptoms, abdominal pain, heavy bleeding, four smelling vaginal discharge. The patient was instructed to schedule a Follow up appointment in 2 weeks to discuss pathology results of the biopsy and treatment options. This note was generated with a voice recognition program. Some errors may have been overlooked during the review of this note. Sometimes these errors may affect the content or meaning of a given sentence. [id number] Biopsy Assessment & Plan Assessment & Plan (1) Postmenopausal bleeding: Comment: Weekly proliferative endometrial and status post hysteroscopic polypectomy Code(s): N95.0 - Postmenopausal bleeding Category: Medical Plan: EMB done, see procedure note. Will check EMB pathology if persistent proliferative endometrium will proceed with Mirena IUD insertion. Instructions given the patient to schedule a 1- 2 week EMB follow-up appointment and to call in case abnormal uterine bleeding occurs. All questions answered, the patient verbalized understanding Orders: Orders AMB Endometrial Biopsy Today N95.0 - Postmenopausal bleeding Coding Level of Care Code Procedure Only Diagnoses Postmenopausal bleeding N95.0 CPT Codes Endometrial Biopsy - CPT: 83152-Sfjpwbozktt Biopsy ([id number])
== END 2024-07-21 08:04 | disposition home or self-care (01) ==
LOC: HO.HWS 07:34
PROVIDERS: PCP Nurse Practitioner Family; Visit Provider Obstetrics & Gynecology
DX: N95.0 Postmenopausal bleeding (principal)
CPT/HCPCS: 58100

== ENCOUNTER 2024-07-28 07:35 | Outpatient (AMB) | payer OTHER, SELFPAY ==
--- OUTSIDE RECORDS SUMMARY | 2024-07-28 07:37 | XMS_ITS | Clinical Summary ---
Author Organization [facility] Address [address] [place] [address] Care Team Providers Care Melting Operator Name Role Phone Mk Gomez CORY Primary Care Provider [phone] Source Comments PLEASE NOTE, if this patient [...] Description 08/17/2024 4:00 PM EDT Office Visit [facility] [address] [place] [phone] Ben Morales [address] [place] [address] Health Maintenance Due Date Last Done Comments [...] Cancer Screening (Mammogram) 07/10/2018 07/10/2017 (Managed by [facility] de Provider) Diabetes Screening 05/26/2020 05/26/2017, 1 06/13/2014, 04/12/2015 Cervical Cancer Screening 07/01/2020 Pap Smear 07/01/2020 07/01/2017, 06/15/2015 Lipid Screening 05/26/2022 05/26/2017, 04/12/2015 [id number] ( season) 2023 Imm-Influenza (#1) 2023 Alcohol [...] EST) CHOLESTEROL 147 0 - 200 mg/dL [facility] TRIGLYCERIDES 224(H) 0 - 150 mg/dL [facility] HDL CHOLESTEROL 46 >40 mg/dL [facility] LDL CALCULATED 57 0 - 100 mg/dL [facility] TC-HDLC RATIO 3.2 0 - 4.4 mg/dL [facility] Blood specimen (specimen) Blood / Unknown 05/26/2017 4:37 PM EST 05/26/2017 6:[address] [facility] - 05/26/2017 7:49 PM EST [facility] [address] [place] [address] PT ID [id number] ORD# [id number] Mk Chloegriselda RAY LAB - BLOOD DRAW Edited Result - Final [facility] [address] [place] [address], * COMPRE METAB PANEL (05/26/2017 4:37 PM EST) GLUCOSE 88 70 - 100 mg/dL [facility] Comment:Reference range appl icable to fasting specimens only BUN 8 5 - 25 mg/dL [facility] CREAT 0.69 0.5 - 1.1 mg/dL [facility] GLOMERULAR FILTRATION RATE > 60 [facility] Comment: If patient is -German, multiply result by 1.21 Chronic Kidney Disease: < 60 ml/min/1.73 square meters Kidney Failure: < 15 ml/min/1.73 square meters SODIUM 141 133 - 145 mmol/L [facility] POTASSIUM 3.9 3.5 - 5.5 mmol/L [facility] CHLORIDE 103 96 - 110 mmol/L [facility] CO2 30 21 - 32 mmol/L [facility] ANION GAP 8 3 - 11 [facility] CALCIUM 8.8 8.5 - 10.5 mg/dL [facility] TOTAL PROTEIN 7.3 6.0 - 8.0 G/dL [facility] ALBUMIN 3.7 3.2 - 5.0 G/dL [facility] BILI, TOTAL 0.3 0.0 - 1.4 mg/dL [facility] SGOT 29 10 - 42 U/L [facility] SGPT 26 10 - 60 U/L [facility] ALK PHOS 64 42 - 121 U/L [facility] Blood specimen (specimen) Blood / Unknown 05/26/2017 4:37 PM EST 05/26/2017 6:[address] [facility] - 05/26/2017 7:49 PM EST [facility] [address] [place] [address] PT ID [id number] ORD# [id number] Mk Patricia MANAGER [employer]CH[employer] LAB - BLOOD DRAW Edited Result - Final [address] [address], * (ABNORMAL) HEPATITIS A,B,C PANEL (07/27/2015 1:36 PM EDT) HEPATITIS B SURFACE ANTIBODY NEGATIVE NEGATIVE [facility] HEPATITIS B SURFACE ANTIGEN NEGATIVE NEGATIVE [facility] HEPATITIS C VIRUS DIAGNOSTIC NEGATIVE NEGATIVE [facility] HEPATITIS A ANTIBODY TOTAL POSITIVE(A) NEGATIVE [facility] HEPATITIS B CORE ANTIBODY NEGATIVE NEGATIVE [facility] Blood specimen (specimen) Blood / Unknown 07/27/2015 1:36 PM EDT 07/27/2015 2:47 PM EDT [facility] - 07/27/2015 7:55 PM EDT [facility] [employer] [address] [place] [address] PT ID [id number] ORD# [id number] Mk GOULDP LAB - BLOOD DRAW Edited Result - Final [address] [address], from Last 3 Months or Most Recently Relevant to Health Maintenance Insurance HEALTH SAFETY NET [facility] Member Subscriber Plan / Payer (Ef fective 2016-Present) Name:Esdras Almonte Relation to Subscriber:Self Name:Esdras Almonte Payer ID:[id number] Type:Indemnity Address: [facility] [address] [place] [address] [place] MEDICAID DENTAL [facility] Care Teams Melting Operator Relationship Specialty Start Date End Date Mk Gomez FNP [address] [place] [address] PCP - General Family Medicine, AWARD CLERK 04/10/15
[2024-07-28 07:38] VITALS: BMI 25.1
--- NOTE | 2024-07-28 07:38 | MHC.OFFVIS ---
Vital Signs 07/28/24 07:38 Height 5 ft 2 in Weight 137 lb BMI 25.1 Intake Visit Reasons: EMB results Production Supply Equipment Tender Required: No Information Interpreted: non-clinical & clinical Accompanied by: Self / Same As Patient Allergies No Known Allergies Allergy (Verified 07/28/24 07:39) Is last menstrual period known: No (mirena) Post menopausal: Yes HPI Comments Details: The patient is presenting after endometrial biopsy. The patient has no complaints, no vaginal bleeding, no feverishness chills or abdominal pain. The endometrial biopsy pathology report showed the following: Benign atrophic endometrium, and benign endocervical glandular and squamous epithelium; no atypia or carcinoma. [facility] Medical History (Updated 07/28/24 @ 07:54 by Martin Zhu MD) Ascending aorta dilatation Family history of cardiac disorder Rheumatic fever Subclinical hypothyroidism Postmenopausal bleeding Gastric ulcer Anemia Surgical History History of esophagogastroduodenoscopy (EGD) (~2023) H/O colonoscopy (~2023) Family History Father Prostate cancer Bladder cancer Mother HTN (hypertension) Brother Myocardial infarction Social History Household Members Other:: daughters Housing: House Alcohol intake: current Alcohol intake frequency: holidays/special occasions only Patient Tobacco Use Status: Never used Tobacco e-Cigarette/Vaping Use: Never Used Current occupational status: employed 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 Sexual orientation: Straight/Heterosexual Gender identity: Female Cognitive needs: No Hearing needs: No Vision needs: No Female Reproductive History Menstrual control method: progestin IUCD Review of Systems Const All systems reviewed & are unremarkable except as noted in HPI and below Reports as per HPI and Reports no additional complaints GI Reports no additional complaints Reports no additional complaints Physical Exam Vital Signs: BMI result Body Mass Index 25.1 Assessment & Plan Assessment & Plan (1) Postmenopausal bleeding: Comment: 02/10 Weekly proliferative endometrial and status post hysteroscopic polypectomy 08/12 benign endometrium Code(s): N95.0 - Postmenopausal bleeding Category: Medical Plan: Discussed with the patient the results of the endometrial biopsy showing benign endometrium with no evidence of proliferation or hyperplasia or malignancy. Discussed with the patient the sensitivity, specificity, positive and negative predictive value, of endometrial biopsy in detecting endometrial pathology including but not limited to endometrial hyperplasia, cancer and other pathology; instructed the patient to call in case vaginal bleeding recurs, the next step will be to proceed with a diagnostic hysteroscopy/D&C for further endometrial sampling evaluation to rule out endometrial pathology. Explained to the patient that since there is no evidence of proliferation there is no indication for progesterone treatment. All questions answered and the patient verbalized understanding and agreed with the plan. Coding Level of Care Code Est Pt Level 3 (46023) Diagnoses Postmenopausal bleeding N95.0
== END 2024-07-28 08:16 | disposition home or self-care (01) ==
LOC: HO.HWS 07:35
PROVIDERS: PCP Nurse Practitioner Family; Visit Provider Obstetrics & Gynecology
DX: N95.0 Postmenopausal bleeding (principal)
CPT/HCPCS: 99213

== ENCOUNTER → 2024-07-28 07:35 | Outpatient (BNVA) | payer OTHER, SELFPAY | PROVIDERS: PCP Nurse Practitioner Family; Visit Provider Obstetrics & Gynecology ==

== ENCOUNTER 2024-08-25 07:47 | Outpatient (AMB) | payer OTHER, SELFPAY ==
--- NOTE | 2024-08-25 07:48 | MHC.OFFVIS ---
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 She is doing well with toggle press operator concerns. History of postmenopausal bleeding and proliferative lining endometrial biopsy hysteroscopy, EMB follow up for 1 year-negative. She did not have a Mirena inserted due to concerns for breast changes risk for breast. Currently not sexually active. Denies any vaginal dryness or irritation. Attempting to eat a healthy diet with calcium and vitamin D and stays active with exercise. Last pap smear; 2023. Last mammogram; 2024. Colonoscopy is UTD. Denies any family history of breast, ovarian or colon cancer. [facility] Medical History Ascending aorta dilatation Family history of cardiac disorder Rheumatic fever Subclinical hypothyroidism Postmenopausal bleeding Gastric ulcer Anemia Surgical History History of esophagogastroduodenoscopy (EGD) (~2023) H/O colonoscopy (~2023) Family History Father Prostate cancer Bladder cancer Mother HTN (hypertension) Brother Myocardial infarction Social History Household Members Other:: daughters Housing: House Alcohol intake: current Alcohol intake frequency: holidays/special occasions only Patient Tobacco Use Status: Never used Tobacco e-Cigarette/Vaping Use: Never Used Current occupational status: employed 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 Sexual orientation: Straight/Heterosexual Gender identity: Female Cognitive needs: No Hearing needs: No Vision needs: No Female Reproductive History Menstrual Menopause type: natural Total pregnancies: 3 Full term: 3 Number of Living Children: 3 Date of last pap smear: 08/14/23 (neg pap and hpv) Date of Mammogram: 05/06/24 (Birad 1) Physical Exam Vital Signs: Last Vital Signs BP 110/70 08/25/24 07:49 BMI result Body Mass Index 25.1 Assessment & Plan Assessment & Plan (1) Encounter for well woman exam with routine gynecological exam: Code(s): Z01.419 - Encounter for gynecological examination (general) (routine) without abnormal findings Category: Medical Plan Discussed: Current recommendations for pap smears per ASCCP guidelines. Breast awareness, periodic self breast exams and yearly mammogram. Maintain a healthy lifestyle, well balanced diet including Calcium 1,200 mg and Vitamin D 600 IU daily, and routine exercise. Contact the office with any postmenopausal bleeding. Patient verbalizes understanding and agrees to the plan of care. She was given opportunity to ask questions and all questions were answered to the best of my ability. RTO in 1 year for annual toggle press operator exam. This note is constructed using voice recognition software. While every effort has been made to ensure accuracy, alteration tailor apprentice errors may have been included. Coding Level of Care Code Est Pt Prev Care 40-64y(14871) Diagnoses Encounter for well woman exam with routine gynecological exam Z01.419
[2024-08-25 07:49] VITALS: BP 110/70; BMI 25.1
--- OUTSIDE RECORDS SUMMARY | 2024-08-25 07:49 | XMS_ITS | Clinical Summary ---
Author Organization [facility] Address [address] [place] [address] Care Team Providers Care Assistant Boiler Operator Name Role Phone Mk Gomez CORY Primary Care Provider Source Comments PLEASE NOTE, if this patient [...] 04/11/2015 IUD (intrauterine device) in place 04/11/2015 Encounters Date Type Department Care Team Description 08/17/2024 4:00 PM EDT Office Visit [facility] [address] [place] [address] Ben Morales Caries of enamel (incipient) (Primary Dx); Dental caries on smooth surface penetrating into dentin; Defective dental advent from Last 3 Months Immunizations Immunization Administration Dates Next Due MMR (MMR II/Priorix) 05/25/2015 TDAP 05/25/2015 Family History Medical History Relation Name Comments Cancer Father Prostate Relation Name Status Comments Brother Alive Father Alive Mother Alive Sister Social History Tobacco Use Types Packs/Day Years Used Date Smoking Tobacco: Never Passive Smoke Exposure: Never Smokeless Tobacco: Never Tobacco Cessation:Counseling Given: Not Answered Alcohol Use Standard Drinks/Week Comments No 0 [...] Sign Reading Time Taken Comments Blood Pressure 116/70 08/17/2024 4:15 PM EDT Pulse 72 08/17/2024 4:15 PM EDT Temperature 36.9 ??C (98.4 ??F) [...] Care Team (Late st Contact Info) Description 10/13/2024 4:00 PM EDT Office Visit [facility] [place] [address] Kam Oliveira DDS [address] [place] [address] 10/25/2024 4:20 PM EDT Office Visit [facility] [place] [address] Ben Morales [address] [place] [address] Health Maintenance Due Date Last Done Comments Anxiety Screening 1966 HPV Screening 1966 Pap + HPV 1966 HIV Screening 1981 Imm-Hepatitis B (1 of 3 - 19 + 3-dose series) 1985 CT Colonography 11/05/2011 Colonoscopy 11/05/2011 Colorectal Cancer Screening 11/05/2011 FIT/gFOBT 11/05/2011 Fecal DNA 11/05/2011 Flexible Sigmoidoscopy 11/05/2011 Imm-Zoster, Recombinant (1 of 2) 2016 Annual Preventive Care Visit 07/01/2018, 05/26/2017, 06/15/2015, Additional history exists Breast Cancer Screening (Mammogram) 07/10/2018 07/10/2017 (Managed by [facility] Provider) Diabetes Screening 05/26/2020 05/26/2017, 1 06/13/2014, 04/12/2015 Cervical Cancer Screening 07/01/2020 Pap Smear 07/01/2020 07/01/2017, 06/15/2015 Lipid Screening 05/26/2022 05/26/2017, 04/12/2015 [id number] ( season) 2023 Imm-Influenza (#1) 2023 Alcohol and Drug Screen 04/20/2024 04/11/2015, 04/11 Depression Annual Screen 04/20/2024 04/11/2015 Imm-DTaP/Tdap/Td (2 - Td or Tdap) 05/25/2025 016 Hypertension Screening (#1) 08/17/2025 Tobacco Screening 08/17/2025 08/17/2024 Hepatitis C Screening Completed 07/27/2015 Cervical Ablation/Cold-Knife Conization Discontinued Cervical Cryotherapy Discontinued Colposcopy Discontinued Endometrial Biopsy Discontinued Excision/Leep Discontinued HPV Genotyping Discontinued Vaginal Pap Discontinued Vulvoscopy Discontinued Procedures Procedure Name Priority Date/Time Associated Diagnosis Comments DENTAL CASE MANAGEMENT - MOTIVATIONAL INTV Routine 08/17/2024 4:00 PM EDT Caries of enamel (incipient) Dental caries on smooth surface penetrating into dentin Defective dental advent INTRAORAL - COMP SERIES OF RADIOGRAPHIC IMAGES Routine 08/17/2024 4:00 PM EDT Caries of enamel (incipient) Defective dental advent Dental caries on smooth surface penetrating into dentin COMP ORAL EVALUATION - NEW/ESTABLISHED PATIENT Routine 08/17/2024 4:00 PM EDT Caries of enamel (incipient) Dental caries on smooth surface penetrating into dentin Defective dental advent CARIES RISK ASSESSMENT & DOC FINDING HIGH RISK Routine 08/17/2024 4:00 PM EDT Caries of enamel (incipient) Dental caries on smooth surface penetrating into dentin Defective dental advent NUTRITIONAL COUNSELING CONTROL OF DENTAL DISEASE Routine 08/17/2024 4:00 PM EDT Caries of enamel (incipient) Dental caries on smooth surface penetrating into dentin Defective dental advent ORAL HYGIENE INSTRUCTIONS Routine 08/17/2024 4:00 PM EDT Caries of enamel (incipient) Dental caries on smooth surface penetrating into dentin Defective dental advent ORAL CANCER SCREENING Routine 08/17/2024 4:00 PM EDT Caries of enamel (incipient) Dental caries on smooth surface penetrating into dentin Defective dental advent CASE PRESENTATION SUBS DTL & EXTENSIVE TX PLN Routine 08/17/2024 4:00 PM EDT Caries of enamel (incipient) Dental caries on smooth surface penetrating into dentin Defective dental advent 10 ROOT CANAL - WISDOM (NO BILLABLE) Routine 08/17/2024 12:00 AM EDT 31 O AMALGAM - WISDOM (NON BILLABLE) Routine 08/17/2024 12:00 AM EDT 32 O COMPOSITE - WISDOM (NON BILLABLE) Routine 08/17/2024 12:00 AM EDT 31 B COMPOSITE - WISDOM (NON BILLABLE) Routine 08/17/2024 12:00 AM EDT 29 MO COMPOSITE - WISDOM (NON BILLABLE) Routine 08/17/2024 12:00 AM EDT 28 O COMPOSITE - WISDOM (NON BILLABLE) Routine 08/17/2024 12:00 AM EDT 13 MO COMPOSITE - WISDOM (NON BILLABLE) Routine 08/17/2024 12:00 AM EDT 11 L COMPOSITE - WISDOM (NON BILLABLE) Routine 08/17/2024 12:00 AM EDT 10 ML COMPOSITE - WISDOM (NON BILLABLE) Routine 08/17/2024 12:00 AM EDT 9 ML COMPOSITE - WISDOM (NON BILLABLE) Routine 08/17/2024 12:00 AM EDT 8 ML COMPOSITE - WISDOM (NON BILLABLE) Routine 08/17/2024 12:00 AM EDT 7 L COMPOSITE - WISDOM (NON BILLABLE) Routine 08/17/2024 12:00 AM EDT 3 MO COMPOSITE - WISDOM (NON BILLABLE) Routine 08/17/2024 12:00 AM EDT 2 MO COMPOSITE - WISDOM (NON BILLABLE) Routine 08/17/2024 12:00 AM EDT 20 DO AMALGAM - WISDOM (NON BILLABLE) Routine 08/17/2024 12:00 AM EDT 18 MO AMALGAM - WISDOM (NON BILLABLE) Routine 08/17/2024 12:00 AM EDT 14 O AMALGAM - WISDOM (NON BILLABLE) Routine 08/17/2024 12:00 AM EDT 12 DO AMALGAM - WISDOM (NON BILLABLE) Routine 08/17/2024 12:00 AM EDT 4 MOD AMALGAM - WISDOM (NON BILLABLE) Routine 08/17/2024 12:00 AM EDT 3 O AMALGAM - WISDOM (NON BILLABLE) Routine 08/17/2024 12:00 AM EDT 2 O AMALGAM - WISDOM (NON BILLABLE) Routine 08/17/2024 12:00 AM EDT 5 DO COMPOSITE - WISDOM (NON BILLABLE) Routine 08/17/2024 12:00 AM EDT 5 ROOT CANAL - WISDOM (NO BILLABLE) Routine 08/17/2024 12:00 AM EDT 4 O COMPOSITE - WISDOM (NON BILLABLE) Routine 08/17/2024 12:00 AM EDT COMPREHENSIVE METABOLIC PANEL Routine 05/26/2017 4:37 PM [...] (ABNORMAL) LIPID PANEL (05/26/2017 4:37 PM EST) [facility] CHOLESTEROL 147 0 - 200 mg/dL [facility] Passenger Baggage [facility] TRIGLY[facility]ER[facility] 224(H) 0 - 150 mg/dL [facility] HDL CHOLESTEROL 46 >40 mg/dL [facility] LDL CALCULATED 57 0 - 100 mg/dL [facility] TC-HDLC RATIO 3.2 0 - 4.4 mg/dL [facility] Blood specimen (specimen) Blood / Unknown 05/26/2017 4:37 PM EST 05/26/2017 6:20 PM EST Narrative [facility] - 05/26/2017 7:49 PM EST [facility] [address] [place] [address] PT ID [id number] ORD# [id number] Mk RAY LAB - BLOOD DRAW Edited Result - Final [facility] [address] [place] [address], * COMPRE METAB PANEL (05/26/2017 4:37 PM EST) GLUCOSE 88 70 - 100 mg/dL [facility] Comment:Reference range appl icable to fasting specimens only BUN 8 5 - 25 mg/dL [facility] CREAT 0.69 0.5 - 1.1 mg/dL [facility] GLOMERULAR FILTRATION RATE > 60 [facility] Comment: If patient is -E[place]ian, multiply result by 1.21 Chronic Kidney Disease: < 60 ml/min/1.73 square meters Kidney Failure: < 15 ml/min/1.73 square meters SODIUM 141 133 - 145 mmol/L [facility] POTASSIUM 3.9 3.5 - 5.5 mmol/L [facility] CHLORIDE 103 96 - 110 mmol/L [facility] CO2 30 21 - 32 mmol/L [facility] ANION GAP 8 3 - 11 [facility] CALCIUM 8.8 8.5 - 10.5 mg/dL [facility] TOTAL PROTEIN 7.3 6.0 - 8.0 G/dL [facility] ALBUMIN 3.7 3.2 - 5.0 G/dL [facility] BILI, TOTAL 0.3 0.0 - 1.4 mg/dL [facility] SGOT 29 10 - 42 U/L [facility] SGPT 26 10 - 60 U/L [facility] ALK PHOS 64 42 - 121 U/L [facility] Blood specimen (specimen) Blood / Unknown 05/26/2017 4:37 PM EST 05/26/2017 6:20 PM EST Narrative [facility] - 05/26/2017 7:49 PM EST [facility] [address] [place] [address] PT ID [id number] ORD# [id number] Mk RAY LAB - BLOOD DRAW Edited Result - Final Performing Organization Address City/[facility]/ZIP Co de Phone Number [address] [address], * (ABNORMAL) HEPATITIS A,B,C PANEL (07/27/2015 1:36 PM EDT) HEPATITIS B SURFACE ANTIBODY NEGATIVE NEGATIVE [facility] HEPATITIS B SURFACE ANTIGEN NEGATIVE NEGATIVE [facility] HEPATITIS C VIRUS DIAGNOSTIC NEGATIVE NEGATIVE [facility] HEPATITIS A ANTIBODY TOTAL POSITIVE(A) NEGATIVE [facility] HEPATITIS B CORE ANTIBODY NEGATIVE NEGATIVE [facility] Blood specimen (specimen) Blood / Unknown 07/27/2015 1:36 PM EDT 07/27/2015 2:47 PM EDT Narrative [facility] - 07/27/2015 7:55 PM EDT [facility] [address] [place] [address] PT ID [id number] ORD# [id number] Mk RAY LAB - BLOOD DRAW Edited Result - Final Performing Organization Address City/[facility]/ZIP Co de Phone Number [address] [place] [address], from Last 3 Months or Most Recently Relevant to Health Maintenance Insurance [employer] /[facility] Member Subscriber Plan / Payer (Ef fective 2016-Present) Name:Esdras Almonte Relation to Subscriber:Self Name:Esdras Almonte Payer ID:[id number] Type:IndemniRPM Real Estate Address: [facility] [address] [id number] [facility] Care Teams Assistant Boiler Operator Relationship Specialty Start Date End Date Mk Gomez FNP [address] [place] [address] PCP - General Family Medicine, AIR PUMPER 04/10/15
== END 2024-08-25 08:21 | disposition home or self-care (01) ==
LOC: HO.HWS 07:47
PROVIDERS: PCP Nurse Practitioner Family; Visit Provider Advanced Practice Midwife
DX: Z01.419 Encounter for gynecological examination (general) (routine) without abnormal findings (principal)
CPT/HCPCS: 99396; 99459

== ENCOUNTER 2025-03-27 19:44 | Emergency (ER) | payer OTHER, SELFPAY ==
[2025-03-27 19:47] VITALS: BP 130/71; PULSE 65; RESP 16; TEMP 36.6; O2SAT 100; BMI 24.7
--- NOTE | 2025-03-27 19:50 | ED.FEMALEGU ---
HPI - Female Genitourinary General Chief complaint: Urogenital-Female Stated complaint: Urinary Symptoms Time Seen by Provider: 03/27/25 21:03 Source: patient Mode of arrival: ambulatory Limitations: no limitations History of Present Illness ED Provider: Pasquale ESCALONA HPI Narrative: The patient is a 59-year-old female presenting to the ED reporting since Thursday she has been experiencing dysuria with the associated urinary frequency and mild left lower quadrant discomfort without associated tenderness. The patient denies associated objective fever but does report subjective chills, denies associated nausea, vomiting, diarrhea, recent sick contacts, recent trauma, or recent surgical intervention. Patient does not report frequent UTIs but has had them previously and reports this feels similar. Related Data Home Medications ?Medication ?Instructions ?Recorded ?Confirmed cholecalciferol (vitamin D3) 25 25 mcg PO DAILY 08/14/23 07/08/24 mcg (1,000 unit) capsule multivitamin 1 tab PO DAILY 08/14/23 07/08/24 ferrous fumarate 324 mg (106 mg 324 mg PO DAILY 06/15/24 07/08/24 iron) tablet omega-3 fatty acids 1,000 mg 1,000 mg PO DAILY 06/15/24 07/08/24 capsule magnesium 200 mg tablet 200 mg PO DAILY 08/25/24 Previous Rx's ?Medication ?Instructions ?Recorded cephalexin 500 mg capsule 500 mg PO QID #28 caps 03/27/25 phenazopyridine 100 mg tablet 100 mg PO TID 6 doses #6 tabs 03/27/25 (Pyridium) Allergies Allergy/AdvReac Type Severity Reaction Status Date / Time No Known Allergies Allergy Verified 03/27/25 19:49 Review of Systems Review of Systems: Yes all other systems are reviewed and are negative [facility] Past Medical History Medical History Ascending aorta dilatation Family history of cardiac disorder Rheumatic fever Subclinical hypothyroidism Postmenopausal bleeding Gastric ulcer Anemia Surgical History History of esophagogastroduodenoscopy (EGD) (~2023) H/O colonoscopy (~2023) Family History Family History Father Prostate cancer Bladder cancer Mother HTN (hypertension) Brother Myocardial infarction Social History Social History Household Members Other:: daughters Housing: House Alcohol intake: current Alcohol intake frequency: holidays/special occasions only Patient Tobacco Use Status: Never used Tobacco e-Cigarette/Vaping Use: Never Used Advance Directives: No Advance Directives Information Provided: No Current occupational status: employed 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 Labs ordered Medications Administered Discontinued Medications Generic Name Dose Route Start Last Admin Trade Name Freq PRN Reason Stop Dose Admin Cephalexin HCl 500 mg 03/27/25 21:59 03/27/25 22:06 Cephalexin 500 Mg Capsule PO 03/27/25 22:00 500 mg ONCE ONE Administration Medical Decision Making Medical Decision Making [facility] Narrative: 10:01 PM 03/27/2025 (Luciano ESCALONA): The patient is a 59-year-old female presenting to the ED reporting since Thursday she has been experiencing dysuria with the associated urinary frequency and mild left lower quadrant discomfort without associated tenderness. The patient denies associated objective fever but does report subjective chills, denies associated nausea, vomiting, diarrhea, recent sick contacts, recent trauma, or recent surgical intervention. Patient does not report frequent UTIs but has had them previously and reports this feels similar. The patient on exam is well-appearing, no evidence of acute distress, no CVAT or abdominal tenderness. Patient's urinalysis demonstrates large leukocyte esterase, WBCs, and 1+ bacteria there was also blood, no nitrites. Patient's laboratory evaluation is reassuring, mild leukocytosis of 12.6, no anemia, electrolyte abnormality, or KERA. Patient likely suffering from acute cystitis no concern for pyelonephritis. The patient will be treated with cephalexin, and Pyridium. Admission/Observation Consideration of admission/observation: Escalation of care including admission/observation considered Lab Data MDM Lab Attestation statement: I reviewed the patient's lab results. 03/27/25 20:08 03/27/25 20:08 Labs: Lab Results 03/27/25 Range/Units 20:08 WBC 12.6 H (4.8-10.8) X10*3/uL RBC 4.16 L (4.20-5.50) X10*6/uL Hgb 12.7 (12.0-16.0) g/dl Hct 37.6 (37.0-47.0) % MCV 90.4 (80.0-98.0) fL MCH 30.5 (27.0-33.0) pg MCHC 33.8 (31.0-35.0) g/dl RDW 12.2 (11.0-16.0) % Plt Count 213 (160-400) X10*3/uL MPV 10.4 (9.4-12.3) fL Immature Gran % (Auto) 0.5 H (0.0-0.4) % Neut % (Auto) 72.7 (45-73) % Lymph % (Auto) 17.8 L (20-40) % [place] % (Auto) 8.4 (2-11) % Eos % (Auto) 0.3 (0-4) % Baso % (Auto) 0.3 (0-2) % Lymph # (Auto) 2.2 (1.2-4.9) X10*3/uL [place] # (Auto) 1.1 (0.1-1.2) X10*3/uL Eos # (Auto) 0.0 (0.0-0.4) X10*3/uL Baso # (Auto) 0.0 (0.0-0.2) X10*3/uL Abs Immat Gran (auto) 0.06 H (0.00-0.03) X10*3/uL Absolute Neuts (auto) 9.1 H (2.0-8.3) x10*3/uL Absolute Nucleated RBC 0.000 (0.0-0.012) X10*3/uL Nucleated RBC % (auto) 0.0 (0.0-0.2) /100WBC Sodium 136 (135-145) mmol/L Potassium 3.7 (3.3-5.1) mmol/L Chloride 99 (96-108) mmol/L Carbon Dioxide 28 (22-29) mmol/L Anion Gap 13 (12-20) BUN 8 L (9-16) mg/dL Creatinine 0.67 (0.5-1.4) mg/dL Estim Creat Clear Calc 78.8 Estimated GFR > 60 Random Glucose 103 (60-115) mg/dL Calcium 9.7 (8.4-10.2) mg/dL Total Bilirubin 0.7 (0.0-1.0) mg/dL AST 28 (5-31) U/L ALT 29 (0-31) U/L Alkaline Phosphatase 71 (39-117) U/L Total Protein 7.4 (6.5-8.0) g/dL Albumin 4.5 (3.5-5.0) g/dL Beta HCG, Quant 3 mIU/mL Urine Color Yellow Urine Appearance Cloudy Urine pH 7.0 (5.0-9.0) Ur Specific [place] <= 1.005 (1.005-1.025) Urine Protein 30 (1+) H (Neg-Trace) mg/dL Urine Glucose (UA) Negative (Negative) mg/dL Urine Ketones Negative (Negative) mg/dL Urine Blood Large (3+) H (Negative) Urine Nitrite Negative (Negative) Ur Leukocyte Esterase Large (3+) H (Negative) Urine RBC >20 H (0-2) /HPF Urine WBC >50 H (0-5) /HPF Ur Squamous Epith Cells 0-2 (0-2) /HPF Urine Bacteria 1+ (None Seen) Hyaline Casts 11-20 (0-2) /LPF Urine Test NEGATIVE (NEGATIVE) External Record Review External record reviewed: Outpatient record and Prior outpatient labs Discharge Plan Discharge Clinical Impression: Urinary tract infection Patient Disposition: Home, Self-Care Instructions: Urinary Tract Infection in Women (ED) Additional Instructions: Thank you for choosing [facility]'s Emergency Department for your care today. Your laboratory evaluation today is reassuring that you do not have a systemic infection. At this time there is no indication for admission to the hospital or continued ED observation, and it is safe to discharge you home. Your urinalysis is positive for urinary tract infection. We are treating you with an antibiotic cephalexin, and also a medication called Pyridium for your discomfort. Please take these both as directed until finished. You should take alternating (staggered) doses of ibuprofen 600mg and Tylenol 1000mg every 4 hours as needed for any additional pain. Please stay well hydrated and get plenty of rest. Please follow up with your primary care physician for re-evaluation, additional management of your symptoms, and continued preventative care. If you do not have a primary care physician, please call the [facility] at [phone] to establish a new primary care physician. While waiting to establish your new primary care physician, you can call our [facility]in [facility] at [phone] for non-emergency needs. Please return to the emergency department if you develop a severe or sudden change in your symptoms, a fever over 100.4 that does not improve with Tylenol or Ibuprofen, recurrent vomiting, or any other new or worsening symptoms or concerns. Prescriptions: New cephalexin 500 mg capsule 500 mg PO QID Qty: 28 0RF phenazopyridine [Pyridium] 100 mg tablet 100 mg PO TID 0 Days Qty: 6 0RF No Action omega-3 fatty acids 1,000 mg capsule 1,000 mg PO DAILY ferrous fumarate 324 mg (106 mg iron) tablet 324 mg PO DAILY multivitamin Tablet 1 tab PO DAILY cholecalciferol (vitamin D3) 25 mcg (1,000 unit) capsule 25 mcg PO DAILY magnesium 200 mg tablet 200 mg PO DAILY Referrals: Nicole Euceda, [employer] [Primary Care Provider, Internal Medicine] Clinical Impression: Urinary tract infection Interventions: ED Discharge Assessment Last Done: 03/27/25 22:37 Discharge Date/Time: 03/27/25 22:37 Print Language: Azeri
[2025-03-27 20:27] LABS: MANUAL DIFF FLAG NO
[2025-03-27 20:30] LABS: Appearance Urine Cloudy; Glucose Urine UA Negative (Negative); PH 7.0 (5.0-9.0); Specific Gravity - Urine <= 1.005 (1.005-1.025); UMIC TRIGGER UACC YES
[2025-03-27 20:31] LABS: UPreg QC Valid YES
[2025-03-27 20:38] LABS: UACC Culture Trigger YES
[2025-03-27 20:42] LABS: Hematocrit 37.6 % (37.0-47.0); Hemoglobin 12.7 g/dl (12.0-16.0); Imm Gran Abs Auto 0.06 X10*3/uL (0.00-0.03); Imm Gran Pct Auto 0.5 % (0.0-0.4); Lymphocytes Absolute Auto 2.2 X10*3/uL (1.2-4.9); Mean Corpuscular HGB Conc 33.8 g/dl (31.0-35.0); Mean Corpuscular Hemoglobin 30.5 pg (27.0-33.0); Mean Corpuscular Volume 90.4 fL (80.0-98.0); NRBC Abs Auto 0.000 X10*3/uL (0.0-0.012); NRBC Pct Auto 0.0 /100WBC (0.0-0.2); Platelet Count 213 X10*3/uL (160-400); Red Blood Count 4.16 X10*6/uL (4.20-5.50); White Blood Count 12.6 X10*3/uL (4.8-10.8)
[2025-03-27 20:48] LABS: Alanine Aminotransferase 29 U/L (0-31); Albumin Level 4.5 g/dL (3.5-5.0); Alkaline Phosphatase 71 U/L (39-117); Anion Gap 13 (12-20); Aspartate Amino Transferase 28 U/L (5-31); Blood Urea Nitrogen 8 mg/dL (9-16); Calcium 9.7 mg/dL (8.4-10.2); Carbon Dioxide 28 mmol/L (22-29); Chloride 99 mmol/L (96-108); Creatinine Clr Calc Pharmacy 78.8; Estimated Glomerular Filt Rate > 60; Potassium 3.7 mmol/L (3.3-5.1); Sodium 136 mmol/L (135-145); Total Protein 7.4 g/dL (6.5-8.0)
[2025-03-27 22:37] VITALS: BP 130/71; PULSE 65; RESP 16; TEMP 36.6; O2SAT 100
== END 2025-03-27 22:37 | disposition home or self-care (01) ==
PROVIDERS: Physician Assistant; Emergency Provider Emergency Medicine; PCP Nurse Practitioner Family
DX: N39.0 Urinary tract infection, site not specified (principal)
CPT/HCPCS: 36415; 80053; 81001; 81025; 84702; 85025; 87086; 87088; 87186; 99282; 99283